=== PATIENT | female | born 2005 | race Caucasian/White ===

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

== ENCOUNTER 2023-09-10 08:09 | Emergency (ER) | payer OTHER, SELFPAY ==
[2023-09-10 08:10] VITALS: BP 114/62; PULSE 56; RESP 15; TEMP 36.4; O2SAT 100; BMI 19.3
--- NOTE | 2023-09-10 08:27 | EX.ED.DYSGE1 ---
HPI History of Present Illness Chief Complaint: Abn Labs Detail of Chief Complaint: Concern for carbon monoxide poisoning Narrative Narrative: Patient presents to the emergency department with concern for carbon monoxide poisoning. Apparently the patient's mother noticed that the house smelled of gas and called her father who investigated and thought there was a gas leak underneath the house. Patient complains of a headache and some nausea but she states is a chronic thing for her. She just wanted to get checked out. Patient has a history of POTS syndrome and vasovagal syncope. [facility] Medical History Lightheadedness Ovarian cyst Syncope Syncope and collapse Home Medications levonorgestrel 14 mcg/24 hrs (3 yrs) 13.5 mg intrauterine device (Naomy) 1 device intrauterine ONCE 01/27/20 [History Last Taken Unknown] Allergy/AdvReac Type Severity Reaction Status Date / Time No Known Allergies Allergy Verified 09/10/23 08:11 Family History Other Anxiety Depression Hypertension Social History Smoking Status: Never smoker alcohol intake: never substance use type: does not use caffeine: Yes what type of physical activity do you participate in: none seatbelt use: always additional social history: Patient is [employer] at [employer] ROS ROS ED Review of Systems ROS Unobtainable: other Constitutional Constitutional ED: Reports lethargy; Denies chills, fever(s), sweats or weight loss Eyes Eyes: Denies blurry vision, change in vision or diplopia ENT ENT ED: Denies rhinorrhea or sore throat Cardiovascular Cardiovascular: Denies chest pain, orthopnea or racing heartbeat Respiratory/Chest Respiratory/Chest: Reports dyspnea and dyspnea on exertion; Denies cough, orthopnea or sputum Gastrointestinal Gastrointestinal: Reports nausea; Denies abdominal pain, diarrhea or vomiting Genitourinary Genitourinary ED: Denies dysuria, hematuria or urinary frequency Musculoskeletal Musculoskeletal: Denies arthralgias, back pain, myalgias or neck pain Integumentary Denies abscess, Abrasions or rash Neurologic Neurologic: Reports headache(s); Denies weakness Psychiatric Psychiatric: Denies anxiety, depression or suicidal thoughts Endocrine Endocrinology: Denies polydipsia, polyphagia or polyuria Hematologic/Lymphatic Hematologic/Lymphatic: Denies easy bleeding, easy bruising or lymphadenopathy Allergic/Immunologic Allergic/Immunologic ED: Denies mouth swelling, tongue swelling or urticaria EXAM Physical Exam Const Vital Signs: 09/10/23 08:10 09/10/23 08:37 Temperature 97.6 F L Temperature Source Temporal Pulse Rate 56 L Respiratory Rate 15 Respiratory Effort Normal Respiratory Pattern Normal Blood Pressure 114/62 Blood Pressure Mean 79 Pulse Ox 100 Oxygen Delivery Method Room Air Positive well nourished and well developed General Appearance ED: well developed and NAD HEENT Reports TM's clear and moist mucous membranes normocephalic and atraumatic; Negative for trauma or tenderness Tympanic Membrane ED: Yes TM's clear Eyes PERRL and EOMs intact bilaterally General Eye ED: Negative for pale conjunctiva or scleral icterus Neck no lymphadenopathy, supple and no JVD General: Negative for tenderness Chest Wall inspection of chest normal and palpation of chest normal Chest: Negative for tenderness Resp normal respiratory effort and clear to auscultation bilaterally Effort and Inspection: Negative for respiratory distress or pain with movement Auscultation: Negative for rhonchi, wheezes or diminished lung sounds Cardio regular rate, regular rhythm, S1 normal heart sound, S2 normal heart sound and no murmurs Peripheral Pulses: pulses 2+ throughout GI normal to inspection, nondistended, normoactive bowel sounds, soft to palpation, non-tender, non-distended and no masses Back/Spine no CVA tenderness and no thoracic nor lumbar tenderness Extremity normal to inspection General Extremety ED: Negative for edema General Extremity: Negative for edema Neuro oriented x3, CN's II-XII intact bilaterally, no sensory deficits noted and gait normal Sensorium / Orientation: awake, alert, oriented to person, oriented to place and oriented to time Motor Exam: strength 5/5 throughout and strength abnormal Psych mental status grossly normal Skin no rashes or lesions noted and no wounds MDM MDM MDM Narrative Medical decision making narrative: Patient presents to the emergency department concern for carbon oxide poisoning due to a gas leak at home. She is mostly feeling at her baseline she is chronically has a headache and some nausea but does not any treatment for it. Patient had a carboxyhemoglobin level here that was normal at 1.8. Discussed results with patient. She will be discharged to home. She is advised to make sure she ventilates the home and make sure that she gets the gas leak addressed. ABG Data ABG results: ABG 09/10/23 09:08 VBG Carboxyhemoglobin 1.8 H Discharge Plan Triage Chief Complaint: Abn Labs ED Provider: Ivan Turk Dx/Rx/DC Orders Clinical Impression: Carbon monoxide in residence Instructions: ED Carbon Monoxide Poisoning Prescriptions: No Action Naomy 14 mcg/24 hrs (3 yrs) 13.5 mg intrauterine device 1 device intrauterine ONCE Rx Instructions: as a single dose Primary Care Provider: Munira Solano Referrals: Munira Solano MD [Primary Care Provider] - As Needed Disposition Disposition: Home, Self Care
[2023-09-10 09:11] LABS: Carboxyhemoglobin Frac (CO) 1.8 % (0.0-1.5)
--- OUTSIDE RECORDS SUMMARY | 2023-09-10 09:20 | XMS RPT_ITS | CCD ---
Author Name Unknown Address [address] [place] [address] Organization [facility] Care Team Providers Care Lamp Cleaner Name Role Phone DANIELLE ESPARZA Unavailable Unavailable REFERRED, SELF Unavailable Unavailable DANIELLE ESPARZA Unavailable Unavailable Unavailable Primary Care Provider Unavaildelfina e NO, PHYSICIAN Primary Care Unavailable JHOANA PASCUAL Attending Unavailable Ralph Rivera Unavailable Ralph Rivera Unavailable Zaire Solano MD Primary Care Provider [phone] ZAIRE SOLANO MD Primary Care Physician [phone] Emilee Funes DO Unavailable KOFI SANCHEZ, DR RODRÍGUEZ Attending UnavailZAIRE Rao MD Primary Care Unavailab ZAIRE Barragan MD Primary Care Unavailab JADIEL Perez MD Attending Unavailable Ralph Rivera MD Unavailable Zaire Solano MD Primary Care Provider [phone] Emilee Funes DO Unavailable EMILEE FUNES Attending UnavailEMILEE Reina Referring Unavailabl e OLEGHE, EFEWONGBE B Primary Care Unavailable EMILEE FUNES Attending UnavailEMILEE Reina Referring Unavailabl e OLEGHE, EFEWONGBE B Primary Care Unavailable EMILEE FUNES Attending UnavailRALPH Merchant Referring Unavailable AUNDREA, EFEWONGBE B Primary Care Unavailable EMILEE FUNES Attending UnavailEMILEE Reina Referring Unavailabl e OLEGHE, EFEWONGBE B Primary Care Unavailable EMILEE FUNES Referring Unavailabl e OLEGHE, EFEWONGBE B Primary Care Unavailable EMILEE FUNES Referring Unavailabl e OLEGHE, EFEWONGBE B Primary Care Unavailable EMILEE FUNES Referring Unavailabl e OLEGHE, EFEWONGBE B Primary Care Unavailable EMILEE FUNES Referring Unavailabl e OLEGHE, EFEWONGBE B Primary Care Unavailable EMILEE FUNES Referring Unavailabl e OLEGHE, EFEWONGBE B Primary Care Unavailable Medications Current Medications Medication Drug Class(es) Dates Sig (Normalized) Sig (Original) ondansetron 4 mg oral tablet (1 source) Serotonin-3 Receptor Antagonist Start: 01-27-2023 End: 01-30-2023 take 1 tablet by mouth every six hours as needed for nausea Zofran ODT use ondansetron oral tablet, disintegrating Dose : 4 mg =, Oral, q6h, PRN as needed for nausea/vomiting, # 12 tab(s), 0 Refill(s) Start Date: 01/27/23 Stop Date: 01/30/23 Status: Ordered perflutren lipid microspheres 1.3 mL in NaCl (PF) 0.9% 10 mL injection (DEFINITY) (10 sources) Start: 06-13-2022 End: 09-12-2023 perflutren lipid microspheres 1.3 mL in NaCl (PF) 0.9% 10 mL injection (DEFINITY) 125 ml sodium chloride 9 mg/ml prefilled syringe (10 sources) Start: 06-13-2022 End: 09-12-2023 sodium chloride 0.9 % (flush) 10 mL (BD POSIFLUSH) Completed/Discontinued Medications Medication Drug Class(es) Dates Sig (Normalized) Sig (Original) doxycycline monohydrate 100 mg oral capsule (5 sources) Tetracycline-cla ss Drug Start: 08-22-2022 End: 10-30-2022 take 1 capsule by mouth twice daily doxycycline monohydrate (MONODOX) 100 mg capsule TAKE 1 CAPSULE BY MOUTH TWICE DAILY FOR 14 DAYS 0 08/22/2022 10/30/2022 Discontinued (Course of therapy completed) Problems Active Problems Problem Classification Problem Date Documented Da te Episodic/Chronic Cardiac dysrhythmias (3 sources) Postural orthostatic tachycardia syndrome ; Translations: [POTS (postural orthostatic tachycardia syndrome)] Chronic Inflammatory diseases of female pelvic organs (1 source) Acute vaginitis; Translations: [Acute vaginitis] Onset: 08-07-2022 Episodic Other lower respiratory disease (2 sources) Dyspnea on exertion; Translations: [Other forms of dyspnea] Episodic Ovarian cyst (1 source) Cyst of ovary; Translations: [Unspecified ovarian cyst, unspecified side] Onset: 08-07-2022 Episodic Residual codes; unclassified (1 source) Left before being seen; Translations: [Procedure and treatment not carried out due to patient leaving prior to being seen by health care provider] Episodic Residual codes; unclassified (1 source) Procedure needed; Translations: [Other specified health status] Episodic Residual codes; unclassified (1 source) Difficulty managing exercise regime; Translations: [Other specified health status] Episodic Residual codes; unclassified (1 source) Activity intolerance; Translations: [Other general symptoms and signs] 05-31-2023 Episodic Residual codes; unclassified (1 source) Other general symptoms and signs; Translations: [Activity intolerance] Onset: 06-01-2023 Episodic Unclassified (1 source) POTS (postural orthostatic tachycardia syndrome); Translations: [POTS (postural orthostatic tachycardia syndrome)] Onset: 11-28-2022 Past or Other Problems Problem Classification Problem Date Documented Da te Episodic/Chronic Administrative/social admission (2 sources) Patient encounter status; Translations: [Exercise counseling] Onset: 10-30-2022 Episodic Allergic reactions (10 sources) Contact dermatitis; Translations: [Unspecified contact dermatitis, unspecified cause] Onset: 03-04-2008 06-13-2022 Episodic Cardiac dysrhythmias (18 sources) Palpitations; Translations: [Palpitations] Onset: 05-19-2022 Episodic Conditions associated with dizziness or vertigo (15 sources) Lightheadedness; Translations: [Dizziness and giddiness] Onset: 01-26-2022 06-13-2022 Episodic Malaise and fatigue (3 sources) Fatigue; Translations: [Other fatigue] Onset: 11-28-2022 Episodic Nonspecific chest pain (3 sources) Chest pain; Translations: [Chest pain, unspecified] Onset: 11-28-2022 Episodic Other lower respiratory disease (1 source) Other forms of dyspnea; Translations: [EDWARDS (dyspnea on exertion)] Onset: 11-28-2022 Episodic Residual codes; unclassified (2 sources) Other specified health status; Translations: [Need for home exercise program] Onset: 10-30-2022 Episodic Syncope (20 sources) Syncope and collapse; Translations: [Syncope and collapse] Onset: 12-21-2021 Episodic Results Test Name Value Interpretation Reference Range Facil ity Vital Signs Date Time Vital Sign Value Performing Clinician Facility 06-01-2023 07:43-0500 Body height 170.2 cm Emilee Funes DO Work Phone: [facility] 06-01-2023 07:43-0500 Body weight 58.06 kg Emilee Funes DO Work Phone: [facility] 01-27-2023 18:22-0400 Body temperature 98.78 [degF] JADIEL AYON MD [facility] 01-27-2023 18:22-0400 Diastolic Blood Pressure Non-Invasive 83 1 JADIEL AYON MD [facility] 01-27-2023 18:22-0400 Heart rate 86 /min JADIEL AYON MD [facility] 01-27-2023 18:22-0400 Respiratory rate 18 /min JADIEL AYON MD [facility] 01-27-2023 18:22-0400 Systolic Blood Pressure Non-Invasive 119 1 JADIEL AYON MD [facility] 10-30-2022 12:04-0400 Body height 167.6 cm [facility] Work Phone: [facility] 10-30-2022 12:04-0400 Body weight 57.61 kg [facility] Clinic Work Phone: [facility] 10-30-2022 12:04-0400 Diastolic blood pressure 70 mm[Hg] [facility] Work Phone: [facility] 10-30-2022 12:04-0400 Heart rate 72 /min [facility] Work Phone: [facility] 10-30-2022 12:04-0400 Systolic blood pressure 102 mm[Hg] [facility] Work Phone: [facility] 08-25-2022 15:08-0500 Body height 167.6 cm Emilee Courson DO Work Phone: [facility] 08-25-2022 15:08-0500 Body weight 55.79 kg Emilee Courson DO Work Phone: [facility] 08-25-2022 15:08-0500 Diastolic blood pressure 74 mm[Hg] Emilee Courson DO Work Phone: [facility] 08-25-2022 15:08-0500 Heart rate 86 /min Emilee Courson DO Work Phone: [facility] 08-25-2022 15:08-0500 Systolic blood pressure 111 mm[Hg] Emilee Courson DO Work Phone: [facility] 08-06-2022 22:57-0500 Body temperature 98.78 [degF] DR ANNE KIRBY MD [facility] 08-06-2022 22:57-0500 Diastolic Blood Pressure Non-Invasive [address] ANNE KIRBY MD [facility] 08-06-2022 22:57-0500 Heart rate 95 /min DR ANNE KRIBY MD [facility] 08-06-2022 22:57-0500 Respiratory rate 18 /min DR ANNE KIRBY MD [facility] 08-06-2022 22:57-0500 Systolic Blood Pressure Non-Invasive [address] ANNE KIRBY MD [facility] Encounters Encounter Date Encounter Type Care Provider Facility Start: 06-01-2023 End: 06-01-2023 ambulatory EMILEE FUNES Facility:[facility] Start: 06-01-2023 End: 06-01-2023 ambulatory Emilee Funes DO Work Phone: Cardiology Procedures Date Procedure Procedure Detail Performing Clinician Start: 10-30-2022 Cv strs tst xers&/or rx cont ecg trcg only Kylie Bartolo [employer] MARKET[employer] MANAGER Work Phone: Plan of Treatment Date Care Activity Detail Author Start: 10-10-2025 Urine microalbumin profile DTaP,Tdap,Td Vaccine (7 - Td or Tdap) [facility] Start: 03-23-2023 Covid-19 Vaccine () Covid-19 Vaccine () [facility] Start: 03-23-[address] [facility] Start: 07-23-2022 DEPRESSION ASSESSMENT DEPRESSION ASSESSMENT [facility] Start: 2022 Urine microalbumin profile DTAP,TDAP,TD (1 - Tdap) [facility] Start: 03-23-[address] [facility] Start: 03-01-2022 COVID-19 VACCINE (4 - Booster for Pfizer series) COVID-19 VACCINE (4 - Booster for Pfizer series) [facility] Start: 07-23-2021 DEPRESSION ASSESSMENT DEPRESSION ASSESSMENT [facility] Start: 04-30-2021 COVID-19 VACCINE (3 - Booster for Pfizer series) COVID-19 VACCINE (3 - Booster for Pfizer series) [facility] Start: 2021 CHLAMYDIA SCREENING (18-24) CHLAMYDIA SCREENING (18-24) [facility] Start: 2021 GC (GONORRHEA) SCREENING (18-24) GC (GONORRHEA) SCREENING (18-24) [facility] Start: 2021 HEPATITIS C SCREENING HEPATITIS C SCREENING [facility] Start: 2021 HIV SCREENING HIV SCREENING [facility] Start: 01-23-2021 COVID-19 VACCINE (3 - Booster for Pfizer series) COVID-19 VACCINE (3 - Booster for Pfizer series) [facility] Start: 2019 Meningococcal B Vaccine: Consider Based On Risk (1 of 2 - Patient Seeks Protection) Meningococcal B Vaccine: Consider Based On Risk (1 of 2 - Patient Seeks Protection) [facility] Start: 2019 MENINGOCOCCAL CONJUGATE (1 - 2-dose series) MENINGOCOCCAL CONJUGATE (1 - 2-dose series) [facility] Start: 2017 PEDS TO ADULT TRANSITION ANNUAL ASSESSMENT PEDS TO ADULT TRANSITION ANNUAL ASSESSMENT [facility] Start: 2015 Adult depression screening assessment DEPRESSION SCREENING [facility] Start: 2015 PEDS TO ADULT TRANSITION INITIAL DISCUSSION PEDS TO ADULT TRANSITION INITIAL DISCUSSION [facility] Start: 2014 HPV VACCINE (1 - 2-dose series) HPV VACCINE (1 - 2-dose series) [facility] Start: 2013 MENINGOCOCCAL B: Consider based on risk (1 of 2 - Risk Bexsero 2-dose series) MENINGOCOCCAL B: Consider based on risk (1 of 2 - Risk Bexsero 2-dose series) [facility] Start: 2012 HPV VACCINE (1 - 2-dose series) HPV VACCINE (1 - 2-dose series) [facility] Start: 2010 Urine microalbumin profile DTAP,TDAP,TD (1 - Tdap) [facility] Start: 2003 HEPATITIS B (1 of 3 - 3-dose series) HEPATITIS B (1 of 3 - 3-dose series) [facility] CARDIAC REHAB [place] OUT PT ([place], [place]) CARDIAC REHAB II OUTPT ([place]) BIC Routine POTS (postural orthostatic tachycardia syndrome) Ordered: 08/25/2022 [facility] Work Phone: Immunizations Immunization Date Immunization Notes Care Provider Mita lorenz 04-23-2017 influenza virus vacc ine, unspecified formulation Emilee Funes DO Work Phone: [facility] Payers Date Payer Category Payer Unknown [id number] 2018 Unknown MMO MMO [employer] [id number] 2018-Present [phone] [address] [place] [address] PPO [id number] 2018 Unknown [id number] 2003 Unknown [id number] 2003 Unknown [id number] 2003 Unknown [id number] Social History Date Type Detail Facility Tobacco smoking stat us [facility]IS Tobacco smoking consumption unknown [facility] Start: 10-26-2021 History SDOH Alcohol Frequency [address] [facility] Start: 10-26-2021 History SDOH Alcohol Std Drinks [address] [facility] Start: 10-26-2021 History SDOH Social Connections Phone [address] [facility] Start: 10-26-2021 History SDOH Social Connections Yazidi [address] [facility] Start: 10-26-2021 History SDOH Social Connections Meetings [address] [facility] Start: 10-26-2021 History SDOH Social Connections Living [address] [facility] Start: 2003 Sex Assigned At Female [facility] Start: 08-29-2021 End: 06-13-2022 Exposure to SARS-CoV-2 (event) Not sure [facility] Start: 06-13-2022 Tobacco smoking status KSIS Never smoked tobacco [facility] Start: 06-13-2022 Tobacco use and exposure Smokeless tobacco non-user [facility] Start: 06-13-2022 End: 06-01-2023 Alcohol intake Ex-drinker (finding) [facility] Tobacco smoking status No Smokin g Status Entered [facility] Start: 10-26-2021 End: 11-28-2022 History of Social function [facility] Start: 10-26-2021 End: 11-28-2022 Social connection and isolation panel [facility] Do you belong to any clubs or organizations such as advent groups, unions, fraternal or athletic groups, or school groups? Yes [facility] Are you now , , , , never or living with a partner? Never [facility] How often to you hav e a drink containing alcohol? Never [facility] How many standard dr inks containing alcohol do you have on a typical day? Patient refused [facility] Do you feel stress - tense, restless, nervous, or anxious, or unable to sleep at night because your mind is troubled all the time - these days [OSQ] Not at all [facility] (I/We) worried wheth er (my/our) food would run out before (I/we) got money to buy more. Never true [facility] In the past 12 month s, was there a time when you were not able to pay the mortgage or rent on time? No [facility] Start: 10-26-2021 Gender identity Identifies as female gender (finding) [facility] Functional Status Date Assessment Result Facility 01-27-2023 Functional Status Independent [facility] 08-07-2022 Functional Status Activity [place] tance Independent [facility] 08-06-2022 Functional Status Standard Safet y ID band on, Call device within reach, Bed in low position, Wheels locked, Upper/Half-Length side-rails up, Phone within reach, personal items within reach, Safety level maintained [facility] Mental Status Date Assessment Result Facility 01-27-2023 Mental Status Orientation Oriented x 4 [facility] 08-07-2022 Mental Status Orientation Oriented x 4 [facility] 08-06-2022 Mental Status [facility] Clinical Notes 06-09-2022 to 06-01-2023 Emilee Funes DO - 06/01/2023 8:45 AM ESTTelephone Encounter - Elaine Jones - 01/10/2023 11:26 AM EDTPatient Dima Mcfarland APRN.CNP - 10/30/2022 11:45 AM EDT Note Date & Type Note Facility 06-01-2023 Note HNO ID: [id number] Author: Emilee Funes DO Service: ? Author Type: Physician Type: Progress Notes Filed: 06/01/2023 8:14 AM Note Text: Heart, Vascular AND Thoracic [place] Department of Cardiovascular Medicine Telephone visit ESTABLISHED OUTPATIENT VISIT SERVICE DATE: 06/01/2023 Patient: Shagufta Murray SERVICE TIME: 7:24 AM : 2005 This is a virtual video visit. It required patient-provider interaction for the medical decision making as documented below. Shagufta Murray has consented to this video encounter. CHIEF COMPLAINT syncope HISTORY OF PRESENT ILLNESS Shagufta Murray is a 18 year old female with POTS and VVS confirmed by tilt. Has been counseled on lifestyle management and trialed on propranolol. She had been doing well with lessening frequency of her episodes at our prior visit and so were continuing her treatment plan and today is a follow up to reassess progress. She relates she has only had one episode of full lose of consciousness since our visit, occurred with exercise. She has been exercising regularly and consistent. She has been having GI symptoms and been a bit more bothersome with upset stomach, she started taking a probiotic and this has been helping. Stress test 10/30/22 Stress ECG Summary: The patient's resting heart rate was 63 bpm and blood pressure was 108/74 mmHg. The patient exercised according to the Rbuin 10% protocol. The estimated end-exercise MET level achieved using the FRIEND equation was 9.4, which is within the 25th to 50th percentile for age and sex. The estimated end-exercise MET level achieved using the previous ACSM equation was 11.8. The test was terminated due to general fatigue and the total exercise time was 12 minutes and 0 seconds. No symptoms provoked during stress. The maximum heart rate was 181 bpm, which is 90% of the predicted heart rate for age. This is an adequate heart rate response. Peak blood pressure was 172/80 mmHg. The double product achieved was 268[address]. Tilt 08/21/22 - Overall: The test is positive and diagnostic for reflex vasovagal syncope with predominant vasodepressor response. The test is diagnostic for accentuated postural tachycardia AVG supine HR 76 bpm dHR 70/10 48bpm She had an active stand test as well that was normal Type of Monitor: Extended Monitoring-Zio Patch Enrollment Dates: 06/13/2022-06/27/2022 Predominant rhythm is sinus. Average HR 95 bpm. Rare PAC and PVC Nursing Intake: She has been doing well on the propranolol. She has been doing the cardiac rehab plan since her last appointment. She denies chest pain, shortness of breath, orthopnea, PND, cough, edema or syncope. She drinks 2 32 oz bottles of water a day. She salts her food. She wears compression garments. PAST MEDICAL HISTORY Diagnosis Date Other infants, unspecified (weight)(765.10) 5 weeks early Palpitations Postural orthostatic tachycardia syndrome 08/21/2022 Syncope Unspecified and jaundice PAST SURGICAL HISTORY Procedure Laterality Date NONE FAMILY HISTORY Problem Relation Age of Onset other (negative family history [Other]) Other Social History Tobacco Use Smoking status: Never Smokeless tobacco: Never Vaping Use Vaping Use: Never used Substance Use Topics Alcohol use: Not Currently Drug use: Not Currently ALLERGIES No Known Allergies CURRENT MEDICATIONS propranolol (INDERAL) 10 mg tabletTake 1 tablet by mouth three times daily.Disp: 270 tabletRfl: 3 levonorgestrel (NAOMY) 14 mcg/24 hrs (3 yrs) 13.5 mg IUD IUDLevonorgestrel (Naomy) 14 mcg/24 hrs (3 yrs) 13.5 mg intrauterine device Active 1 DEVICE INTRA-UTER ONCE January 26, 2020 11:00pm as a single doseDisp: Rfl: ASSESSMENT: 1. POTS (postural orthostatic tachycardia syndrome) - ICD9: 427.89, ICD10: G90.A (primary diagnosis) 2. Vasovagal syncope - ICD9: 780.2, ICD10: R55 3. Palpitations - ICD9: 785.1, ICD10: R00.2 4. EDWARDS (dyspnea on exertion) - ICD9: 786.09, ICD10: R06.09 5. Chest pain, unspecified type - ICD9: 786.50, ICD10: R07.9 6. Fatigue, unspecified type - ICD9: 780.79, ICD10: R53.83 7. Lightheadedness - ICD9: 780.4, ICD10: R42 8. Activity intolerance - ICD9: 780.99, ICD10: R68.[address] [facility] Syncope Center Score Please estimate the frequency of the following symptoms: Never-0, Rare-1, Occasional-2, Frequent-3, Daily-4, Constant*-5 Symptoms Subtotal Syncope/Near Syncope Score 2 Dizziness/Lightheadedness Score 2 Exercise Intolerance Score 2 Headache Score 2 Sleep Problems Score 2 Total Frequency Score 9 *For syncope/near syncope multiple episodes daily Please estimate the severity of the following symptoms: None-0, Minimal-1, Mild-2, Moderate-3, Severe-4, Intolerable-5 Symptoms Subtotal Palpitations/Tachycardia Score 2 Fatigue Score 2 Brain Fog Score 2 Shortness of Breath Score 0 GI Symptoms S (more content not included)... [facility] 06-01-2023 History of Present illness Narrative Heart, Vascular & Thoracic [place] Department of Cardiovascular Medicine Telephone visit ESTABLISHED OUTPATIENT VISIT SERVICE DATE: 06/01/2023 Patient: Shagufta Murray SERVICE TIME: 7:24 AM : 2005 This is a virtual video visit. It required patient-provider interaction for the medical decision making as documented below. Shagufta Murray has consented to this video encounter. CHIEF COMPLAINT syncope HISTORY OF PRESENT ILLNESS Shagufta Murray is a 18 year old female with POTS and VVS confirmed by tilt. Has been counseled on lifestyle management and trialed on propranolol. She had been doing well with lessening frequency of her episodes at our prior visit and so were continuing her treatment plan and today is a follow up to reassess progress. She relates she has only had one episode of full lose of consciousness since our visit, occurred with exercise. She has been exercising regularly and consistent. She has been having GI symptoms and been a bit more bothersome with upset stomach, she started taking a probiotic and this has been helping. Stress test 10/30/22 Stress ECG Summary: The patient's resting heart rate was 63 bpm and blood pressure was 108/74 mmHg. The patient exercised according to the Willcox 10% protocol. The estimated end-exercise MET level achieved using the FRIEND equation was 9.4, which is within the 25th to 50th percentile for age and sex. The estimated end-exercise MET level achieved using the previous ACSM equation was 11.8. The test was terminated due to general fatigue and the total exercise time was 12 minutes and 0 seconds. No symptoms provoked during stress. The maximum heart rate was 181 bpm, which is 90% of the predicted heart rate for age. This is an adequate heart rate response. Peak blood pressure was 172/80 mmHg. The double product achieved was [id number]. Tilt 08/21/22 - Overall: The test is positive and diagnostic for reflex vasovagal syncope with predominant vasodepressor response. The test is diagnostic for accentuated postural tachycardia AVG supine HR 76 bpm dHR 70/10 48bpm She had an active stand test as well that was normal Type of Monitor: Extended Monitoring-Zio Patch Enrollment Dates: 06/13/2022-06/27/2022 Predominant rhythm is sinus. Average HR 95 bpm. Rare PAC and PVC Nursing Intake: She has been doing well on the propranolol. She has been doing the cardiac rehab plan since her last appointment. She denies chest pain, shortness of breath, orthopnea, PND, cough, edema or syncope. She drinks 2 32 oz bottles of water a day. She salts her food. She wears compression garments. PAST MEDICAL HISTORY Diagnosis Date Other infants, unspecified (weight)(765.10) 5 weeks early Palpitations Postural orthostatic tachycardia syndrome 08/21/2022 Syncope Unspecified and jaundice PAST SURGICAL HISTORY Procedure Laterality Date NONE FAMILY HISTORY Problem Relation Age of Onset other (negative family history [Other]) Other Social History Tobacco Use Smoking status: Never Smokeless tobacco: Never Vaping Use Vaping Use: Never used Substance Use Topics Alcohol use: Not Currently Drug use: Not Currently ALLERGIES No Known Allergies CURRENT MEDICATIONS propranolol (INDERAL) 10 mg tablet^Take 1 tablet by mouth three times daily.^Disp: 270 tablet^Rfl: 3 levonorgestrel (NAOMY) 14 mcg/24 hrs (3 yrs) 13.5 mg IUD IUD^Levonorgestrel (Naomy) 14 mcg/24 hrs (3 yrs) 13.5 mg intrauterine device Active 1 DEVICE INTRA-UTER ONCE January 26, 2020 11:00pm as a single dose^Disp: ^Rfl: ASSESSMENT: 1. POTS (postural orthostatic tachycardia syndrome) - ICD9: 427.89, ICD10: G90.A (primary diagnosis) 2. Vasovagal syncope - ICD9: 780.2, ICD10: R55 3. Palpitations - ICD9: 785.1, ICD10: R00.2 4. EDWARDS (dyspnea on exertion) - ICD9: 786.09, ICD10: R06.09 5. Chest pain, unspecified type - ICD9: 786.50, ICD10: R07.9 6. Fatigue, unspecified type - ICD9: 780.79, ICD10: R53.83 7. Lightheadedness - ICD9: 780.4, ICD10: R42 8. Activity intolerance - ICD9: 780.99, ICD10: R68.[address] [facility] Syncope [facility] Score Please estimate the frequency of the following symptoms: Never-0, Rare-1, Occasional-2, Frequent-3, Daily-4, Constant*-5 Symptoms Subtotal Syncope/Near Syncope Score 2 Dizziness/Lightheadedness Score 2 Exercise Intolerance Score 2 Headache Score 2 Sleep Problems Score 2 Total Frequency Score 9 *For syncope/near syncope multiple episodes daily Please estimate the severity of the following symptoms: None-0, Minimal-1, Mild-2, Moderate-3, Severe-4, Intolerable-5 Symptoms Subtotal Palpitations/Tachycardia Score 2 Fatigue Score 2 Brain Fog Score 2 Shortness of Breath Score 0 GI Symptoms Score* 1 Total Severity Score 7 *GI symptoms include nausea, bloating, diarrhea, constipation, poor appetite, abdominal pain, early satiety Total of Both Sections: 16 PLAN (Active Outpatient Problems): Overall, Shagufta reports she is doing well. I am really happy with the efforts and progress she has made. I encouraged her to continue her exercise program, we discussed the importance of consistency. We discussed interruptions will happen related to illness, injury or just life gets busy and we discussed how to approach these. I cautioned the ease of deconditioning she could experience, a two week layoff could cause rapid deconditioning, in those situations, I advised not to try to return to her activity level just before illness, but to start back when feeling well encough to do so but to start 50% intensity and 50% duration and then advance as tolerates. We discussed the commonness of GI dysmotility with POTS and the range from mild IBS-like to more severe symptoms. I discussed there is not a POTS specific treatment, treatment is largely symptom based. She is doing well, but we discussed if her GI symptoms would worsen, my advice would be to see a GI specialist and could start locally. I will plan on seeing her in a year but advised to message me if issues arise in the interim. I personally spent 13 minutes in total time involved in the management and care of this patient. Emilee Funes DO May 31, 2023 7:24 AM As a national referral center for Syncope and related conditions, seeing patients from across the country, we cannot provide work, FMLA, disability or other forms, or cardiac clearance. Please contact the patient's primary care physician or clinical extractor machine operator for the documentation requested. We will provide the office notes from the patient's most recent visit if they have not already been received, and other tests or evaluations performed here can be made available upon request. documented in this encounter [facility] 01-27-2023 Note ORIGINAL EXAMINATION: DOPPLER EVALUATION OF THE PELVIS 01/27/2023 7:38 pm COMPARISON: Pelvic ultrasound August 07, 2022 HISTORY: ORDERING SYSTEM PROVIDED HISTORY: Reason for Exam: left pain, rule out torsion FINDINGS: The uterus measures 6.1 cm x 3.9 cm. An intrauterine device is present and appropriately seated within the endometrial canal. Endometrial thickness was not measured. The right ovary measures 2 cm x 2.7 cm x 1.9 cm. Follicles are present which require no further follow-up. Blood flow is present. The left ovary measures 2.5 cm x 2.5 cm x 2.8 cm. Follicles are present, with a dominant follicle measuring up to 9 mm, which require no further follow-up. Blood flow is present. No free fluid. IMPRESSION: 1. No acute sonographic abnormality. 2. Intrauterine device is present and appropriately seated within the endometrial canal. Interpreted by: Shital Buck MD Preliminary Report By: Shital Buck MD Electronically signed By Shital Buck MD Dictated Date: 01/27/2023 7:41:20 PM Prelim Date: 01/27/2023 7:44:48 PM Sign Date: 01/27/2023 7:44:48 PM Ordering Provider: BECKI [facility] ([place]) 01-27-2023 Hospital Discharge instructions Patient Education 01/27/2023 18:26:07 Abdominal Pain Abdominal Pain Abdominal pain is pain in the stomach or belly area. Everyone has this pain from time to time. In many cases it goes away on its own. But abdominal pain can sometimes be due to a serious problem, such as appendicitis. So it s important to know when to get help. Causes of abdominal pain There are many possible causes of abdominal pain. Common causes in adults include: Constipation, diarrhea, or gas Stomach acid flowing back up into the esophagus (acid reflux or heartburn) Severe acid reflux, called GERD (gastroesophageal reflux disease) A sore in the lining of the stomach or small intestine (peptic ulcer) Inflammation of the gallbladder, liver, or pancreas Gallstones or kidney stones Appendicitis Intestinal blockage An internal organ pushing through a muscle or other tissue (hernia) Urinary tract infections In women, menstrual cramps, fibroids, ovarian cysts, pelvic inflammatory disease, or endometriosis Inflammation or infection of the intestines, including Crohn's disease and ulcerative colitis Irritable bowel syndrome Diagnosing the cause of abdominal pain Your healthcare provider will give you a physical exam help find the cause of your pain. If needed, you will have tests. Belly pain has many possible causes. So it can be hard to find the reason for your pain. Giving details about your pain can help. Tell your provider where and when you feel the pain, and what makes it better or worse. Also let your provider know if you have other symptoms such as: Fever Tiredness Upset stomach (nausea) Vomiting Changes in bathroom habits Blood in the stool or black, tarry stool Weight loss that you can't explain (involuntary weight loss?) Also report any family history of stomach or intestinal problems, or cancers. Tell your provider about all your alcohol use and drug use. Tell your provider about all medicines you use, including herbs, vitamins, and supplements. Treating abdominal pain Some causes of pain need emergency medical treatment right away. These include appendicitis or a bowel blockage. Other problems can be treated with rest, fluids, or medicines. Your healthcare provider can give you specific instructions for treatment or self-care based on what is causing your pain. If you have vomiting or diarrhea, sip water or other clear fluids. When you are ready to eat solid foods again, start with small amounts of eyjn-yl-uhyout, low-fat foods. These include apple sauce, toast, or crackers. When to get medical care Call 911 or go to the hospital right away if you: Can t pass stool and are vomiting Are vomiting blood or have bloody diarrhea or black, tarry diarrhea Have chest, neck, or shoulder pain Feel like you might pass out Have pain in your shoulder blades with nausea Have sudden, severe belly pain Have new, severe pain unlike any you have felt before Have a belly that is rigid, hard, and hurts to touch Call your healthcare provider if you have: Pain for more than 5 days Bloating for more than 2 days Diarrhea for more than 5 days A fever of 100.4 F (38 C) or higher, or as directed by your healthcare provider Pain that gets worse Weight loss for no reason Continued lack of appetite Blood in your stool How to prevent abdominal pain Here are some tips to help prevent abdominal pain: Eat smaller amounts of food at each meal. Don't eat greasy, fried, or other high-fat foods. Don't eat foods that give you gas. Exercise regularly. Drink plenty of fluids. To help prevent GERD symptoms: Quit smoking. Reduce alcohol and foods that increase stomach acid. Don't use aspirin or lqzg-pgu-asulxnk pain and fever medicines, if possible. This includes nonsteroidal anti-inflammatory drugs (NSAIDs). Lose excess weight. Finish eating at least 2 hours before you go to bed or lie down. Raise the head of your bed. [id number] [employer]. [address] [place] [address]. All rights reserved. This information is not intended as a substitute for professional medical care. Always follow your healthcare professional's instructions. Follow Up Care 01/27/2023 18:17:17 With:Go to emergency room if symptoms worsen Address:Unknown When:2-4 days With:ZAIRE SOLANO MD Address: [address] [place] [address] [phone] When:2-4 days [facility] 01-27-2023 Emergency department Discharge summary Discharge Instructions Thank you for allowing [facility] to assist you with your healthcare needs. The following is important discharge information regarding your hospital visit. Diagnosis from Today's Visit Abdominal pain What to Do Next Instructions from Your Care Team No qualifying data available. Post Acute Orders No qualifying data available. You Need to Schedule the Following Appointments Follow Up with Go to emergency room if symptoms worsen When Within 2-4 days Follow Up with ZAIRE SOLANO MD When Within 2-4 days Where: [place] [id number] [phone] Allergies NKA Medications Please ask your primary doctor or pharmacist before taking any other medication not listed, including over the counter drugs, herbal medications, vitamins and or supplements as they may interact with your home medications. What How Much When Instructions Last Dose New ondansetron (Zofran ODT use ondansetron oral tablet, disintegrating ) 4 Milligram by mouth Every 6 hours as needed for as needed for nausea/vomiting Duration: 3 Days Printed Prescription Please take this list to your next doctor s visit. Bring all medications you take, including over the counter medications, herbals and other supplements with you to your doctor s visit. Patients and families are reminded to discard old lists and to update any records with all medication providers or retail pharmacies. Education Materials Abdominal Pain Abdominal pain is pain in the stomach or belly area. Everyone has this pain from time to time. In many cases it goes away on its own. But abdominal pain can sometimes be due to a serious problem, such as appendicitis. So it s important to know when to get help. Causes of abdominal pain There are many possible causes of abdominal pain. Common causes in adults include: Constipation, diarrhea, or gas Stomach acid flowing back up into the esophagus (acid reflux or heartburn) Severe acid reflux, called GERD (gastroesophageal reflux disease) A sore in the lining of the stomach or small intestine (peptic ulcer) Inflammation of the gallbladder, liver, or pancreas Gallstones or kidney stones Appendicitis Intestinal blockage An internal organ pushing through a muscle or other tissue (hernia) Urinary tract infections In women, menstrual cramps, fibroids, ovarian cysts, pelvic inflammatory disease, or endometriosis Inflammation or infection of the intestines, including Crohn's disease and ulcerative colitis Irritable bowel syndrome Diagnosing the cause of abdominal pain Your healthcare provider will give you a physical exam help find the cause of your pain. If needed, you will have tests. Belly pain has many possible causes. So it can be hard to find the reason for your pain. Giving details about your pain can help. Tell your provider where and when you feel the pain, and what makes it better or worse. Also let your provider know if you have other symptoms such as: Fever Tiredness Upset stomach (nausea) Vomiting Changes in bathroom habits Blood in the stool or black, tarry stool Weight loss that you can't explain (involuntary weight loss?) Also report any family history of stomach or intestinal problems, or cancers. Tell your provider about all your alcohol use and drug use. Tell your provider about all medicines you use, including herbs, vitamins, and supplements. Treating abdominal pain Some causes of pain need emergency medical treatment right away. These include appendicitis or a bowel blockage. Other problems can be treated with rest, fluids, or medicines. Your healthcare provider can give you specific instructions for treatment or self-care based on what is causing your pain. If you have vomiting or diarrhea, sip water or other clear fluids. When you are ready to eat solid foods again, start with small amounts of fynv-iw-oynxec, low-fat foods. These include apple sauce, toast, or crackers. When to get medical care Call 911 or go to the hospital right away if you: Can t pass stool and are vomiting Are vomiting blood or have bloody diarrhea or black, tarry diarrhea Have chest, neck, or shoulder pain Feel like you might pass out Have pain in your shoulder blades with nausea Have sudden, severe belly pain Have new, severe pain unlike any you have felt before Have a belly that is rigid, hard, and hurts to touch Call your healthcare provider if you have: Pain for more than 5 days Bloating for more than 2 days Diarrhea for more than 5 days A fever of 100.4 F (38 C) or higher, or as directed by your healthcare provider Pain that gets worse Weight loss for no reason Continued lack of appetite Blood in your stool How to prevent abdominal pain Here are some tips to help prevent abdominal pain: Eat smaller amounts of food at each meal. Don't eat greasy, fried, or other high-fat foods. Don't eat foods that give you gas. Exercise regularly. Drink plenty of fluids. To help prevent GERD symptoms: Quit smoking. Reduce alcohol and foods that increase stomach acid. Don't use aspirin or piiu-kou-axhzura pain and fever medicines, if possible. This includes nonsteroidal anti-inflammatory drugs (NSAIDs). Lose excess weight. Finish eating at least 2 hours before you go to bed or lie down. Raise the head of your bed. [id number] [employer]. [address] [place] [address], [place] [address]. All rights reserved. This information is not intended as a substitute for professional medical care. Always follow your healthcare professional's instructions. Additional Information VACCINATE! IT SAVES LIVES! Members of the community who have not yet received the COVID-19 vaccine and would like to receive it can visit one of [facility] vaccine clinics. There are many vaccine clinic locations within the [facility]. For locations and available times, please visit [email or web address].[email or web address] [email or web address] It is important to note that some COVID mobile vaccine clinics are held outdoors and may be canceled in rainy or stormy conditions. To learn more about pediatric vaccinations (ages 5-11), we invite you to visit the [facility] webpage. https://www.[email or web address].org/p ages/1372-Jhmmz-Yinkuonqcvv-Freq xgnozv-Dajqr-Joosrzuhq.html To learn more about the COVID-19 vaccine, we invite you to visit the CDC website for a list of frequently asked questions. https://www.cdc.gov/coronavirus/ 2019-ncov/vaccines/faq.html [facility] Patient Portal Access Instructions: Stay connected with your healthcare team and access your personal medical information anytime with the [employer] Patient Portal. If you would like a full copy of your medical records please contact the [facility] Medical Records Department Sunday through Sunday between 8a.m. and 4:30p.m. Please follow the directions below to access the portal: 1.Access the email account you provided upon registration to the hospital.2.Look for an invitation email from [facility].3.Open the email and access the invitation link: Accept Invitation to [employer]4.Fill in the required joshi to create your account. Sign into www.[employer] with your username and password that you created in the above steps to stay up to date. You can then view a summary of results, a summary of your visits, and the ability to download your summaries to your computer or send the information securely to a physician. Remember that your healthcare information is confidential, so carefully consider who you will allow to register on the [employer] Patient Portal for access to your information. You can also access the [employer] [facility] Patient Portal on the kwiry saima. Simply click on Health Records under Health Data and then click on the Tumblr logo. HOW TO SAFELY DISPOSE OF PRESCRIPTION MEDICATIONS Please use one of the following methods to safely dispose of your unused medications. 1.Use a drug disposal kit: the drug disposal pouch allows you to safely discard your old and unused drugs. Ask your nurse to give you one when you are discharged.2.Visit a local take-back location: Many local pharmacies and police departments have programs that collect old and unwanted prescription drugs. Call your local pharmacy or go to http://[employer]0Q0Ep6k to find one close to you.3.Make use of household items: Use cat litter or old coffee grounds to dispose medications if other options are not available. Mix your drugs with these household products, seal them in an airtight container and throw it into the garbage. Call [facility]: [phone] to be sure your drugs can be disposed of in this way. Some medicines may require a different approach.4.Never flush your medications down the toilet. IF YOU HAVE BEEN PRESCRIBED AN OPIOIDS FOR PAIN If you have been prescribed an opioid (such as hydrocodone, oxycodone or morphine), it is critical to understand the possible side effects and risks of opioid pain medications. Even when taken as directed, opioids can have several side effects including: Tolerance, meaning you might need to take more of a medication for the same pain relief. Nausea, vomiting and/or constipation. Sleepiness, dizziness, dry mouth, confusion, depression or itching. Physical dependence, meaning you have withdrawal symptoms when a medication is stopped ? this can develop within a few days. KNOW YOUR RESPONSIBILITIES It is important to know exactly how much and how often to take the opioid pain medications you are prescribed. Never take opioids in higher amounts or more often than prescribed. Do not combine opioids with alcohol or other drugs that cause drowsiness, such as benzodiazepines, also known as benzos, including diazepam and alprazolam, muscle relaxants or sleep aids. Never sell or share prescription opioids. This is illegal. Store opioids in a secure place and out of reach of others (including children, family, friends and visitors). The last page(s) of this document has been signed and retained as a CHART COPY Signatures Patient Education Materials Abdominal Pain Medication Leaflets My discharge plan and instructions have been reviewed and explained to me and I,SHAGUFTA MURRAY understand my current condition and have read and understand these discharge instructions. I have received a written copy of the plan/instructions. If I have questions, I am aware that I should contact my doctor. Patient/Manager Center Signature: Date/Time: Relationship to Patient: Witness Name/Signature: Date/Time: [facility] 01-27-2023 Note ORIGINAL EXAMINATION: DOPPLER EVALUATION OF THE PELVIS 01/27/2023 7:38 pm COMPARISON: Pelvic ultrasound August 07, 2022 HISTORY: ORDERING SYSTEM PROVIDED HISTORY: Reason for Exam: left pain, rule out torsion FINDINGS: The uterus measures 6.1 cm x 3.9 cm. An intrauterine device is present and appropriately seated within the endometrial canal. Endometrial thickness was not measured. The right ovary measures 2 cm x 2.7 cm x 1.9 cm. Follicles are present which require no further follow-up. Blood flow is present. The left ovary measures 2.5 cm x 2.5 cm x 2.8 cm. Follicles are present, with a dominant follicle measuring up to 9 mm, which require no further follow-up. Blood flow is present. No free fluid. IMPRESSION: 1. No acute sonographic abnormality. 2. Intrauterine device is present and appropriately seated within the endometrial canal. Interpreted by: Shital Buck MD Preliminary Report By: Shital Buck MD Electronically signed By Shital Buck MD Dictated Date: 01/27/2023 7:41:20 PM Prelim Date: 01/27/2023 7:44:48 PM Sign Date: 01/27/2023 7:44:48 PM Ordering Provider: BECKI HOWARD [facility] 01-27-2023 Note ORIGINAL EXAMINATION: DOPPLER EVALUATION OF THE PELVIS 01/27/2023 7:38 pm COMPARISON: Pelvic ultrasound August 07, 2022 HISTORY: ORDERING SYSTEM PROVIDED HISTORY: Reason for Exam: left pain, rule out torsion FINDINGS: The uterus measures 6.1 cm x 3.9 cm. An intrauterine device is present and appropriately seated within the endometrial canal. Endometrial thickness was not measured. The right ovary measures 2 cm x 2.7 cm x 1.9 cm. Follicles are present which require no further follow-up. Blood flow is present. The left ovary measures 2.5 cm x 2.5 cm x 2.8 cm. Follicles are present, with a dominant follicle measuring up to 9 mm, which require no further follow-up. Blood flow is present. No free fluid. IMPRESSION: 1. No acute sonographic abnormality. 2. Intrauterine device is present and appropriately seated within the endometrial canal. Interpreted by: Shital Buck MD Preliminary Report By: Shital Buck MD Electronically signed By Shital Buck MD Dictated Date: 01/27/2023 7:41:20 PM Prelim Date: 01/27/2023 7:44:48 PM Sign Date: 01/27/2023 7:44:48 PM Ordering Provider: BECKI [facility] 01-10-2023 Miscellaneous Notes Electronic request for refill. Requested Prescriptions Pending Prescriptions Disp Refills propranolol (INDERAL) 10 mg tablet 270 tablet 3 Sig: Take 1 tablet by mouth three times daily. Last office visit in was 08/25/2022 Elaine Jones documented in this encounter [facility] 11-28-2022 Note HNO ID: [id number] Author: Emilee Funes, DO Service: ? Author Type: Physician Type: Progress Notes Filed: 11/28/2022 9:21 AM Note Text: Heart, Vascular AND Thoracic [place] Department of Cardiovascular Medicine VIRTUAL VIDEO VISIT ESTABLISHED OUTPATIENT VISIT SERVICE DATE: 11/28/2022 Patient: Shagufta Murray SERVICE TIME: 11:41 AM : 2005 This is a virtual video visit. It required patient-provider interaction for the medical decision making as documented below. Shagufta Murray has consented to this video encounter. CHIEF COMPLAINT syncope HISTORY OF PRESENT ILLNESS Shagufta Murray is a 17 year old female with a prior diagnosis of vasovagal syncope confirmed on her local tilt with NTG, but with very frequent symptoms episodes that we atypical for VVS, she had a repeat tilt consistent with POTS and VVS. She also related episodes of TLOC 10-20 times a week which would not be consistent with POTS or VVS and we recommended a trial of propranolol but if does not help her symptoms would recommend a referral to epilepsy for an EMU evaluation as that burden of episodes is most suggestive of PNES. She was counselled on lifestyle management and referred to cardiac rehab. Overall doing, well, exercised regularly. She gets very lightheaded after exercising. Tilt 08/21/22 - Overall: The test is positive and diagnostic for reflex vasovagal syncope with predominant vasodepressor response. The test is diagnostic for accentuated postural tachycardia AVG supine HR 76 bpm dHR 70/10 48bpm She had an active stand test as well that was normal Type of Monitor: Extended Monitoring-Zio Patch Enrollment Dates: 06/13/2022-06/27/2022 Predominant rhythm is sinus. Average HR 95 bpm. Rare PAC and PVC Nursing Intake: She has been doing well on propranolol. She had her cardiac rehab consult and does exercises at home every other day. She has had 2-3 syncopal episodes. She continues to struggle with fatigue. She his lightheaded on occasion with position change. She denies chest pain, shortness of breath, orthopnea, PND, cough, edema or palpitations. She drinks 4-5 bottles of water a day. She salts her food. She wears knee high compression garments and leggings for work. PAST MEDICAL HISTORY Diagnosis Date Other infants, unspecified (weight)(765.10) 5 weeks early Palpitations Postural orthostatic tachycardia syndrome 08/21/2022 Syncope Unspecified and jaundice PAST SURGICAL HISTORY Procedure Laterality Date NONE FAMILY HISTORY Problem Relation Age of Onset other (negative family history [Other]) Other Social History Tobacco Use Smoking status: Never Smokeless tobacco: Never Vaping Use Vaping Use: Never used Substance Use Topics Alcohol use: Not Currently Drug use: Not Currently ALLERGIES No Known Allergies CURRENT MEDICATIONS propranolol (INDERAL) 10 mg tabletTake 1 tablet by mouth three times daily.Disp: 90 tabletRfl: 3 levonorgestrel (NAOMY) 14 mcg/24 hrs (3 yrs) 13.5 mg IUD IUDLevonorgestrel (Naomy) 14 mcg/24 hrs (3 yrs) 13.5 mg intrauterine device Active 1 DEVICE INTRA-UTER ONCE January 26, 2020 11:00pm as a single doseDisp: Rfl: ASSESSMENT: 1. POTS (postural orthostatic tachycardia syndrome) - ICD9: 427.89, ICD10: G90.A (primary diagnosis) 2. Vasovagal syncope - ICD9: 780.2, ICD10: R55 3. Palpitations - ICD9: 785.1, ICD10: R00.2 4. EDWARDS (dyspnea on exertion) - ICD9: 786.09, ICD10: R06.09 5. Chest pain, unspecified type - ICD9: 786.50, ICD10: R07.9 6. Fatigue, unspecified type - ICD9: 780.79, ICD10: R53.83 7. Lightheadedness - ICD9: 780.4, ICD10: R42 8. Postural lightheadedness - ICD9: 780.4, ICD10: R42 PLAN (Active Outpatient Problems): Overall, Shagufta is doing well. We discussed and she feels she is doing well on current dose of propranolol. We discussed some tips to lessen lightheadedness after exercise, use of cool down, consider recumbant exercise after upright, increased water intake during cool down, wear compression leggings while exercising. She is going to continue her current management plan, I asked that she message me in January, her syncope episodes have decreased but still occurring, if not continued improvement over the 3 months since she started the cardiac rehab program we may add midodrine to see if helps. I personally spent 18 minutes in total time involved in the management and care of this patient. Emilee Funes DO November 27, 2022 11:41 AM As a national referral center for Syncope and related conditions, seeing patients from across the country, we cannot provide work, FMLA, disability or other forms, or cardiac clearance. Please contact the patient's primary care physician or clinical extractor machine operator for the documentation requested. We will provide the office notes from the patient's most recent visit if they have not already been received, an (more content not included)... [facility] 10-30-2022 Instructions Steve Guzman, Software Systems Architect - 10/30/2022 3:27 PM EDT Images from the original note were not included. AEROBIC EXERCISE PLAN FOR SYMPTOM MANAGEMENT: Initiate the self-supervised exercise prescription for Postural Orthostatic Tachycardia Syndrome (POTS) symptom management as outlined below: *Participation in structured exercise as recommended below constitutes a SINGLE aspect of your POTS symptom management plan and should not be viewed as the only factor responsible for managing the severity of your symptoms. *Structured, consistent, and specific exercise is therapeutic and can provide you with a dose-benefit response. This means the more consistent you can be with performing intentional exercise at a safe and appropriate intensity, the more likely you are to see the benefits of exercise training for managing your symptoms. *DO NOT engage in maximal intensity exercise and/or other forms of high intensity physical exertion for your symptom management plan. NO high intensity interval training. *Participating in high/severe intensity physical exertion regardless of whether it occurs in a gym or elsewhere will commonly result in feeling the need to rest/recover for up to 3-4 days before feeling energy and physical endurance levels return to a higher baseline. *Consistently drink water throughout the day in small sips/quantities. Not drinking enough water throughout the day will increase the likelihood your heart rate will rise to levels higher than typical while at rest as well as when changing body positions from sitting to standing. *Do not gulp or chug water. Aerobic Exercise Training: -Choose a time of day (whatever your preference) where you will be able to consistently exercise on a regular basis. Controlling this factor (along with the others) will help you better understand how your body responds to exercise and other types of physical exertion. Subjective exercise intensity scale Rating of perceived exertion (RPE) scale (6-20): *When guiding exercise training intensities, inclusively consider *HR zones (primary guide)*, workload zones, symptoms, and RPE zones. *If you need to make adjustments to the recommended exercise machine settings (noted below) in order to achieve your target HR zone this is perfectly ok. *Commercial brands include for example (other brands are available outside the ones listed below): *Smart Watch ([employer], [employer], [employer]ocr[employer], etc); *POLAR chest strap (model: H10 with any POLAR wrist watch, such as the POLAR UNITE); *Garmin chest strap (model: HRM-Pro Plus with any Garmin watch, such as the VIVOSMART 5); *Adinch Inco 5 or 7 sport watch *Commercial heart rate monitors are not medical devices and the information acquired from these devices should not be used to make medical diagnostic decisions. *Do NOT monitor your HR while performing activities of daily living or other types of quick physical movements throughout your day. *If any exercise occurs outdoors, it will be more difficult to maintain consistent control of your HR response to exercise due to numerous environmental and terrain factors. *You can also expect to expend more energy when performing your exercise outdoors due the influences of numerous environmental and terrain factors. Therefore, take a more conservative approach when performing your exercise training outdoors. *Consider the timing of when you take your b-crissy therapy (PROPRANOLOL) relative to when you exercise, particularly as it relates to basing exercise intensity on HR training zones. *This medication can impact how high your HR rises during exercise. As best as possible, keep the time difference between when you take your b-crissy and when you exercise as consistent as possible. *For example, if you exercise 8 hours after taking your b-crissy you could expect to see your heart rate rise to higher levels compared with if you exercised within the 1 to 3 hour window after taking the medication. Keep this in mind so you have a better understanding of why your heart rate during exercise might differ day-to-day. *Slowly drink 8-12 ounces of water or sports drink within the 30 minutes before exercise (for example, low calorie sugar-free options are Powerade zero, G2, propel fitness water, Vitamin Water, Nuun electrolyte tablets, Liquid IV, etc.). *If you begin exercise without having taken in enough fluid throughout the day, it will be easier for your body temperature to rise quickly and lead to the feeling of being overheated. *Continue to drink fluid throughout exercise and the recovery period as needed. *DO NOT drink caffeine prior to exercise. *Warm-up exercise period immediately prior to performing sessions*: DO NOT SKIP THE WARM UP EVER. The warm up should be performed on the exact piece of equipment you plan on performing your exercise training that day. Do not perform multiple warm up periods on different pieces of equipment. *Skipping the warm up will increase the likelihood you will experience an increase in symptoms during exercise. -Duration: at least 6-8 min (take longer time to warm-up as needed). -Modality: *Semi recumbent cycle, resistance: none *Pedal rate: 30-35 rpm or lower *Stationary upright cycle, resistance: none *Pedal rate: 30-35 rpm or lower -Take as much time as you need after to allow your body to get settled after changing body positions from standing to sitting. -Intensity: heart rate (HR) = 85-90 bpm and Rating of perceived exertion (RPE)= 6-8 (use the above 6-20 scale) -(eventually in your exercise progression) Treadmill: 0.0 % grade at a modest/low level walking pace. -Intensity: heart rate (HR) = 95-100 bpm and Rating of perceived exertion (RPE)= 6-8 (use the above 6-20 scale) *Aerobic Exercise Sessions by Week and Modality*: -Only progress to the next training block of your program if you are able to consistently perform your exercise without experiencing any worsening of your symptoms. -If for any reason you have to miss multiple training days in succession (for example, more than 3) in a given week(s), upon resuming your exercise training it would be reasonable to briefly dial back the HR zone intensity and session duration in order to more appropriately re-introduce physical stress to your body. *For example, for 1 week, decrease the HR zone you had been previously working at prior to the time away by at least 5 bpm from both the lower and upper end of the zone. Also decrease the duration of your training sessions by at least 5 min or more. TRAINING BLOCK #1: Week 1-8 or longer (this is the minimum number of weeks. If necessary, make this training block as long as you need): Mode: Semi recumbent cycle (NO high intensity interval training): -HR = as tolerated, up to 105-110 bpm (primary guide) -Pedal rate = 55-60 rpm. -Andrews = 35-45 . (Make minor adjustments to wheel resistance settings in order to achieve target HR zone, as needed) -Rating of perceived exertion (RPE) = 10-12 (refer to above 6-20 scale) Frequency per week: -At least 4 days (up to 5 days, as tolerated) Weeks 1-4: Total minutes per day (not including warm-up and cool-down time): -as tolerated, up to 20 min (do not exceed time even if you feel the urge to do so) *As tolerated, your exercise can be performed as consecutive minutes. If needed, it is ok if you stop exercise early and begin the active cool-down period. Weeks 5-8: Total minutes per day (not including warm-up and cool-down time): -as tolerated, up to 25 min (do not exceed time even if you feel the urge to do so) *As tolerated, your exercise can be performed as consecutive minutes. If needed, it is ok if you stop exercise early and begin the active cool-down period. -Only progress to the next training block of your program if you are able to consistently perform your exercise without experiencing any worsening of your symptoms. -If for any reason you have to miss multiple training days in succession (for example, more than 3) in a given week(s), upon resuming your exercise training it would be reasonable to briefly dial back the HR zone intensity and session duration in order to more appropriately re-introduce physical stress to your body. *For example, for 1 week, decrease the HR zone you had been previously working at prior to the time away by at least 5 bpm from both the lower and upper end of the zone. Also decrease the duration of your training sessions by at least 5 min or more. TRAINING BLOCK #2: Week 9-16 or longer (this is the minimum number of weeks. If necessary, make this training block as long as you need): Mode: Stationary upright cycle (NO high intensity interval training): -HR = as tolerated, up to 110-115 bpm (primary guide) -Pedal rate = 55-60 rpm. -Andrews = 35-45 . (Make minor adjustments to wheel resistance settings in order to achieve target HR zone, as needed) -Rating of perceived exertion (RPE) = 11-13 (refer to above 6-20 scale) Frequency per week: -At least 4 days (up to 5 days, as tolerated) Weeks 9-12: Total minutes per day (not including warm-up and cool-down time): -as tolerated, up to 25 min (do not exceed time even if you feel the urge to do so) *As tolerated, your exercise can be performed as consecutive minutes. If needed, it is ok if you stop exercise early and begin the active cool-down period. Weeks 13-16: Total minutes per day (not including warm-up and cool-down time): -as tolerated, up to 30 min (do not exceed time even if you feel the urge to do so) *As tolerated, your exercise can be performed as consecutive minutes. If needed, it is ok if you stop exercise early and begin the active cool-down period. -Only progress to the next training block of your program if you are able to consistently perform your exercise without experiencing any worsening of your symptoms. -If for any reason you have to miss multiple training days in succession (for example, more than 3) in a given week(s), upon resuming your exercise training it would be reasonable to briefly dial back the HR zone intensity and session duration in order to more appropriately re-introduce physical stress to your body. *For example, for 1 week, decrease the HR zone you had been previously working at prior to the time away by at least 5 bpm from both the lower and upper end of the zone. Also decrease the duration of your training sessions by at least 5 min or more. TRAINING BLOCK #3: Week 17-24 or longer (this is the minimum number of weeks. If necessary, make this training block as long as you need): Mode: Stationary upright cycle (NO high intensity interval training): -HR = as tolerated, up to 115-120 bpm (primary guide) -Pedal rate = 55-60 rpm. -Andrews = 40-50 (Make minor adjustments to wheel resistance settings in order to achieve target HR zone, as needed) -Rating of perceived exertion (RPE) = 12-14 (refer to above 6-20 scale) Frequency per week: -At least 4 days (up to 6 days, as tolerated) Weeks 17-20: Total minutes per day (not including warm-up and cool-down time): -as tolerated, up to 30 min (do not exceed time even if you feel the urge to do so) *As tolerated, your exercise can be performed as consecutive minutes. If needed, it is ok if you stop exercise early and begin the active cool-down period. Weeks 21-24: Total minutes per day (not including warm-up and cool-down time): -as tolerated, up to 35 min (do not exceed time even if you feel the urge to do so) *As tolerated, your exercise can be performed as consecutive minutes. If needed, it is ok if you stop exercise early and begin the active cool-down period. -Only progress to the next training block of your program if you are able to consistently perform your exercise without experiencing any worsening of your symptoms. -If for any reason you have to miss multiple training days in succession (for example, more than 3) in a given week(s), upon resuming your exercise training it would be reasonable to briefly dial back the HR zone intensity and session duration in order to more appropriately re-introduce physical stress to your body. *For example, for 1 week, decrease the HR zone you had been previously working at prior to the time away by at least 5 bpm from both the lower and upper end of the zone. Also decrease the duration of your training sessions by at least 5 min or more. TRAINING BLOCK #4: Week 25-32 or longer (this is the minimum number of weeks. If necessary, make this training block as long as you need): Mode: Stationary upright cycle (NO high intensity interval training): -HR = as tolerated, up to 120-125 bpm (primary guide) -Pedal rate = 55-60 rpm. -Andrews = 45-55 (Make minor adjustments to wheel resistance settings in order to achieve target HR zone, as needed) -Rating of perceived exertion (RPE) = 12-14 (refer to above 6-20 scale) Or, as tolerated, you may want to integrate the treadmill as an option, Mode: Treadmill (no jogging; no sprinting; NO high intensity interval training): -HR = as tolerated, up to 120-125 bpm (primary guide) -Speed = 3.0 mph, Grade = 0.0 to 2.5 % grade up to (as tolerated) Speed = 3.3 mph, Grade = 0.0 to 2.0 % grade. (Make minor adjustments to achieve target HR zone, as needed) -Rating of perceived exertion (RPE) = 12-14 (refer to above 6-20 scale) Frequency per week: -At least 4 days (up to 6 days, as tolerated) Weeks 25-28: Total minutes per day (not including warm-up and cool-down time): -as tolerated, up to 35 min (do not exceed time even if you feel the urge to do so) *As tolerated, your exercise can be performed as consecutive minutes. If needed, it is ok if you stop exercise early and begin the active cool-down period. Weeks -32: Total minutes per day (not including warm-up and cool-down time): -as tolerated, up to 40 min (do not exceed time even if you feel the urge to do so) *As tolerated, your exercise can be performed as consecutive minutes. If needed, it is ok if you stop exercise early and begin the active cool-down period. -Only progress to the next training block of your program if you are able to consistently perform your exercise without experiencing any worsening of your symptoms. -If for any reason you have to miss multiple training days in succession (for example, more than 3) in a given week(s), upon resuming your exercise training it would be reasonable to briefly dial back the HR zone intensity and session duration in order to more appropriately re-introduce physical stress to your body. *For example, for 1 week, decrease the HR zone you had been previously working at prior to the time away by at least 5 bpm from both the lower and upper end of the zone. Also decrease the duration of your training sessions by at least 5 min or more. TRAINING BLOCK #5: Week 33-40, and beyond (continue training at this level or at previous intensities long-term): Mode: Stationary upright cycle (NO high intensity interval training): -HR = as tolerated, up to 125-135 bpm (primary guide) -Pedal rate = 55-60 rpm. -Andrews = 50-60 (Make minor adjustments to wheel resistance settings in order to achieve target HR zone, as needed) -Rating of perceived exertion (RPE) = 12-14 (refer to above 6-20 scale) Or, as tolerated, you may want to integrate the treadmill as an option, Mode: Treadmill (no sprinting; NO high intensity interval training): -HR = as tolerated, up to 125-135 bpm (primary guide) -Speed = 3.0 mph, Grade = 0.0 to 3.5 % grade up to (as tolerated) Speed = 4.0 mph, Grade = 0.0 to 2.0 % grade. (Make minor adjustments to achieve target HR zone, as needed) -Rating of perceived exertion (RPE) = 12-14 (refer to above 6-20 scale) Frequency per week: -At least 4 days (up to 6 days, as tolerated) Weeks 33-36: Total minutes per day (not including warm-up and cool-down time): -as tolerated, up to 40 min (do not exceed time even if you feel the urge to do so) *As tolerated, your exercise can be performed as consecutive minutes. If needed, it is ok if you stop exercise early and begin the active cool-down period. Weeks 37-40, and beyond (continue training at this level or at previous intensities long-term): Total minutes per day (not including warm-up and cool-down time): -as tolerated, up to 45 min (do not exceed time even if you feel the urge to do so) *As tolerated, your exercise can be performed as consecutive minutes. If needed, it is ok if you stop exercise early and begin the active cool-down period. -If for any reason you have to miss multiple training days in succession (for example, more than 3) in a given week(s), upon resuming your exercise training it would be reasonable to briefly dial back the HR zone intensity and session duration in order to more appropriately re-introduce physical stress to your body. *For example, for 1 week, decrease the HR zone you had been previously working at prior to the time away by at least 5 bpm from both the lower and upper end of the zone. Also decrease the duration of your training sessions by at least 5 min or more. *Exercise cool-down period for exercise sessions*: DO NOT SKIP THE COOL DOWN PERIOD EVER. *Skipping the cool down will increase the likelihood you will experience an increase and persistence of symptoms following exercise. *Duration: 5-10 min (take longer time to cool-down as needed. This period should feel very easy, RPE = 6 to 8, refer to above 6-20 scale). -Modality: *Semi recumbent Bicycle resistance: none *Pedal rate: 30-35 rpm or lower *Stationary upright cycle resistance: none *Pedal rate: 30-35 rpm or lower -Intensity: Rating of perceived exertion (RPE)= 6-8 (use the above 6-20 scale) -Treadmill: 0.0 % grade at a modest/low level walking pace. -Intensity: Rating of perceived exertion (RPE)= 6-8 (use the above 6-20 scale) Physical Activity associated with daily living: *On days where you feel as if you have more energy and less symptoms than most other days, be extremely mindful to avoid over-exerting yourself by trying to fit into your schedule too many activities and/or to-do list items . This type of running around busy day will often be followed by several days of more severe symptoms until your body is able to fully rest and recover. This can become a weekly cycle that is difficult to break if you do not intentionally manage your energy and intensity on your good days . *If there are days where you do not exercise using above equipment, it may help your symptom management to minimize consecutive minutes spent sedentary. *Throughout the day when you are performing activities of daily living, it may help to keep your exertion level within the 6 to 8 RPE range. Take many short breaks throughout the day as needed. *It may help to be mindful of the cumulative impact that concentrated doses of physical exertion associated with activities of daily living can have on your symptoms. *It may help to avoid frequent steep incline walking and frequently moving up-and-down stairs, particularly when carrying items. *It may help to avoid standing in place for extended periods of time. Break up the time by casually pacing around the room for several minutes. Resistance/Strength Training (OPTIONAL): When you have been consistent with your aerobic exercise and have finished Training Block #3 (from above), as tolerated and after self-assessment of your symptoms experienced while engaging in the above exercises, you may have interest in participating in low resistance/high repetition muscle toning exercise to large muscle groups of upper (back/chest) and lower (legs) extremities as well as core (stomach muscles). As needed, I recommend you seek instruction from a trained professional for proper technique and movement execution. *Always perform aerobic exercise training first. Keep the total time spent performing these weight lifting exercises on a given training day to less than 25 min. This should not be the focus of your exercise plan. *For each strength/resistance exercise, use weights that can be lifted 12 to 20 repetitions to local fatigue. *Perform 1 to 2 sets of each exercise/session at 2 to 3 times per week on nonconsecutive days. *Do not aim to keep your heart rate elevated during resistance/strength training. *Avoid straining and holding breath while lifting. *Avoid standing in place while lifting weights. When possible, you should be seated when lifting weights. *Avoid overhead strength training exercises when standing. For example, do not engage in shoulder press exercise when standing. *Avoid plank exercises. Do not do full sit-ups. Do not do oblique twist exercises.Do not do lying bicycle ab workout. Do not do hanging leg raises. *Control rate of lifting and lowering weights. *Do not perform speed circuit training. No Cross-Fit or P90X style of workouts. *Avoid whole body exercise involving dynamic and large postural shifts (for example, lunges, squats, Burpee, squat to push press, step ups, plyometrics, etc.). *Traditional YOGA / Pilates poses can cause immediate lightheadedness/dizziness symptoms. Therefore, please modify movements as needed. Performing movements while only seated on the ground can be an effective modification. Exercise and General Precautions: The following noted points are examples of things to consider when starting an exercise plan designed to assist you in managing the severity of symptoms you experience associated with your medical history. 1. Consistently drink water throughout the day in small sips/quantities to help your symptoms when standing (evidence-based research: Charli Parra, Carter VE, Ulises LJ, et al. Water drinking acutely improves orthostatic tolerance in healthy subjects. Circulation. 2002;106(22):0013-9896). Do not gulp or chug water. Slowly drink 8 ounces of water or sports drink 30 minutes before exercise (for example, low calorie options are Powerade zero, G2, propel fitness water, Vitamin Water, Nuun electrolyte tablets, Liquid IV, etc.). 2. Drink 3-5 ounces of water or sports drink every 15 minutes of exercise. DO NOT drink caffeine prior to exercise. 3. Perform both the warm up and cool down periods as described above. 4. If symptoms worsen at any point during the exercise progression, return to previous level of exercise that was well tolerated for one week, then re-attempt next level of exercise. 5. When possible, use of heart rate monitors during exercise are helpful to maintain and monitor exercise intensity based on the target heart rate ranges listed above. *Commercial brands include for example: *Space Apart Watch ([employer].[place]. TrailMaps, Spinal Ventures, Socrata, etc); *POLAR chest strap (model: H10 with any POLAR wrist watch); *Garmin chest strap (model: HRM-Pro Plus with any Garmin watch); *Fengxiafei 5 or 7 sport watch *Commercial heart rate monitors are not medical devices and the information acquired from these devices should not be used to make medical diagnostic decisions. *Do NOT monitor your HR while performing activities of daily living or other types of quick physical movements throughout your day. 6. Change only one aspect of your exercise routine at one time (for example, mode, duration, frequency, or intensity). 7. When possible, if it has been recommended to you by Dr. Funes to wear medical grade compression stockings, please consider wearing these during exercise. Wear compression stockings throughout the day, but remove at night while sleeping. 8. If needed, monitor resting blood pressures (try to take at same time of day and location in your home each day). Hold exercise for the day if resting BP is >160/90 mmHg. 9. Continue to take medications as prescribed by Dr. Funes and other caregivers. 10. As needed, annual in-office visit to [facility]. This should include exercise stress testing and updates to the exercise prescription. As needed, if you have questions at the 6-8 month time point, please consider using the Virtual Visit platform. A Virtual Visit may be appropriate as long as you have a webcam on your computer or smart phone. Visit [email or web address] to download the guide. Questions? Contact technical support at [phone]. *Guide for Video Visits on Your Computer: [email or web address]/files/org/online-The X Traini nikunj/jbsdekz-jkxgj-[email or web address]/desktop -[email or web address]?la=en *Guide for Video Visits on the Mobile Saima: [email or web address]/- /Find That Filessets/files/org/online-The X Traini nikunj/imbwzkc-vrmay-wtxvck/mobile- guide.ashx?la=en 11. It may help to avoid engaging in body movements during exercise or activities of daily living requiring rapid changes in body position (for example, lunge exercise, squats, etc.), long periods of time standing still, frequent bending down and up, or carrying weighted items long distances/up/down stairs. 12. It may help to avoid impulsive behaviors and frequent short bursts of physical actions throughout your day and across days of the week. This can cause surges in adrenaline throughout your body, which can contribute to symptoms, such as palpitations/racing heart feelings and delayed onset fatigue. 13. It may help to try to keep frequency and intensity level (modest to moderate) of physical activity associated with engaging in activities of daily living consistent over the course of each day as well as on a day-to-day basis. For example, it may be helpful for you to keep an equal balance of time spent between engaging in activities of daily living and rest to a 1 to 2 ratio. An example of this would be, 20 min of modest intensity house work followed by 40 min of rest. 14. It may help to avoid extended periods of sedentary time. Other than sleep at night, you should consider not lying or sitting for more than 60 consecutive minutes without getting up and walking at a mild pace for 5-10 minutes. Breaking up the time you spend in a sedentary position can help allow muscles in your legs to help pump blood throughout your body. 15. When eating, please consider avoiding large meals and large portions. Smaller meals and portion sizes are better for blood circulation associated with digestion. General recommendation for heart health is the mediterranean style diet ([email or web address]://health.[facility]. [email or web address]/dra-mah-szqvno-a-mediterrane an-diet/). Activity guidelines were established based on evidence-based research and expert recommendations outlined in: *Alfredo et al. 'Effects of exercise training on arterial-cardiac baroreflex function in POTS,' Clin Auton Res. 21:73-80, 2010 *Vimal et al. JACC. 2010;55:2858-68 *Lul et al. The international POTS registry: Evaluating the efficacy of an exercise training intervention in a community setting. Heart Rhythm. 2016; 13:943-950 *Alvino MARTINEZ, Yazmin A, Job F, et al. Sinus Tachycardia: a Multidisciplinary Expert Focused Review. Circulation. Arrhythmia and electrophysiology. 2021;15(9):u840203. *Eric Grossman et al. High Submaximal Exercise Heart Rate Impacts Exercise Intolerance in the Postural Orthostatic Tachycardia Syndrome. Journal of Cardiopulmonary Rehabilitation and Prevention. 2019; 1-7. DOI: 10.1097/HCR.3115817340772570 *Valentino Dean Van Iterson EH, Daphne NGUYEN, Alvino MARTINEZ. ST-segment changes during tilt table testing for postural tachycardia syndrome: correlation with exercise stress test results. Clinical autonomic research: official journal of the Clinical Autonomic Research Society. 2020;30:79-83. *Tanner Dumont Van Iterson EH, et al. Functional capacity and quality of life in the postural tachycardia syndrome: A retrospective cross-sectional study. Annals of Medicine and Surgery. 2020. https://doi.org/10.1016/j.amsu.2 020.06.013 FOLLOW UP: *Continue routine follow up with your referring provider, Dr. Funes, for ongoing/additional discussions regarding other aspects of your symptom management plan. *As needed, annual in-office visit to [facility]. This should include exercise stress testing and updates to the exercise prescription. *As needed, Virtual Visit (Visit: [email or web address]. Questions? Contact technical support at [phone]) in 6-8 months for follow up discussions regarding progress made with your exercise plan. *If you would like more information on cardiac rehabilitation, please visit our dedicated [facility] web-page aimed at providing evidence-based information on heart health at the following, [email or web address] . Thank you for your visit with us today in [facility] Rehabilitation. Steve Guzman, PhD Director, Cardiac Rehabilitation Staff, Section of Preventive Cardiology & Rehabilitation Heart and Vascular [place] [facility] [address] [place] [address] Office: [phone] Appointment Desk: [phone] option #3 documented in this encounter [facility] 10-30-2022 Note HNO ID: [id number] Author: Kylie Mcfarland APRN.GABRIELLE Service: ? Author Type: Nurse Practitioner Type: Progress Notes Filed: 10/31/2022 11:39 AM Note Text: Heart and Vascular [place] Vaibhav Elena Department of Cardiovascular Medicine Section of Preventive Cardiology and Rehabilitation POTS Consult 10/30/2022 Shagufta Murray CHIEF COMPLAINT Ms. Shagufta Murray is a 17 year old White female seen today. Patient presents with: Exercise Prescription : POTS PAST MEDICAL HISTORY Diagnosis Date Other infants, unspecified (weight)(765.10) 5 weeks early Palpitations Postural orthostatic tachycardia syndrome 08/21/2022 Syncope Unspecified and jaundice PAST SURGICAL HISTORY Procedure Laterality Date NONE Known Structural Heart Disease: Unknown, no echo reports for review. PAST FAMILY AND SOCIAL HISTORY: FAMILY HISTORY Problem Relation Age of Onset other (negative family history [Other]) Other Social History Tobacco Use Smoking status: Never Smokeless tobacco: Never Vaping Use Vaping Use: Never used Substance Use Topics Alcohol use: Not Currently Drug use: Not Currently ALLERGIES: ALLERGIES No Known Allergies MEDICATIONS: Current Outpatient Medications Medication Sig propranolol (INDERAL) 10 mg tablet Take 1 tablet by mouth three times daily. levonorgestrel (NAOMY) 14 mcg/24 hrs (3 yrs) 13.5 mg IUD IUD Levonorgestrel (Naomy) 14 mcg/24 hrs (3 yrs) 13.5 mg intrauterine device Active 1 DEVICE INTRA-UTER ONCE January 26, 2020 11:00pm as a single dose Current Facility-Administered Medications Medication Dose Route Frequency perflutren lipid microspheres 1.3 mL in NaCl (PF) 0.9% 10 mL injection (DEFINITY) INTRAVENOUS DIRECTED PRN sodium chloride 0.9 % (flush) 10 mL (BD POSIFLUSH) 10 mL INTRAVENOUS DIRECTED PRN PATIENT ENTERED QUESTIONNAIRE SCORES PHQ-9 10/28/2022 Score 5 CANDELARIA - 7 SCORES 10/28/2022 CANDELARIA-7 Score 0 PROMIS Global Health - (T-Scores - the mean of general population = 50. Five points is a clinically meaningful difference.) 10/28/2022 10/26/2021 Physical T-Score 37.4 54.1 Mental T-Score 67.6 59 CURRENT DIAGNOSIS RELATED SYMPTOMS: Episodes of syncope began 04/2021. Was observing a surgery and then when stood from a seated position became lightheaded followed by syncope. Reports she has 10-12 syncopal episodes per week (has improved since propranolol). Typically occur with postural change or prolonged standing. Prodrome includes lightheadedness, SOB, palpitations, diaphoresis and visual changes. Additionally she can experience palpitations that are painful, has fatigue, EDWARDS and chest pain. LIFESTYLE: Consumes 2-3 water bottles per day, 3-4 sugar free Gatorade daily, adds salt to food, wears knee high compression stockings and exercises 2x/week by walking or jogging. More cautious when sitting up. Will also wear compression leggings, does keep a BP cuff handy if needed. EXERCISE: History: Prior to fainting was going to the gym 2x/week (not currently), some light cardio (elliptical), some strength training. Stopped once started having fainting episodes and SOB[place]. Did a 2 mile bike ride last week and HR of 180 bpm. Access to Exercise Equipment: full gym at Mom's work. Apple watch. Barriers: hard time catching breath, heart rate will get very high quickly. Fatigue, out of shape. CLINICAL TESTING RESULTS: Exercise Test Shagufta Murray demonstrated an end exercise capacity equal to 9.4 METS (protocol, rubin 10), while being free from signs and symptoms of ischemia on October 30, 2022. her end-exercise heart rate was 181 bpm (5 H since PROPRANOLOL), whereas her relative end-exercise heart rate was 90 % of her age predicted response. The exercise test was terminated because of general fatigue. Dyspnea (8, 0-10 scale). Angina was not provoked by stress No ST segment changes No clinically significant arrhythmias Normal exercise blood pressure See Epic results for finalized test report and interpretations. Test Impression: Estimated end-exercise METS achieved is below the 50th percentile for age and sex. AEROBIC EXERCISE PLAN FOR SYMPTOM MANAGEMENT: Initiate the self-supervised exercise prescription for Postural Orthostatic Tachycardia Syndrome (POTS) symptom management as outlined below: *Participation in structured exercise as recommended below constitutes a SINGLE aspect of your POTS symptom management plan and should not be viewed as the only factor responsible for managing the severity of your symptoms. *Structured, consistent, and specific exercise is therapeutic and can provide you with a dose-benefit response. This means the more consistent you can be with performing intentional exercise at a safe and appropriate intensity, the more likely you are to see the benefits (more content not included)... [facility] 10-30-2022 History of Present illness Narrative Images from the original note were not included. Heart and Vascular [place] Vaibhav Elena Department of Cardiovascular Medicine Section of Preventive Cardiology and Rehabilitation POTS Consult 10/30/2022 Shagufta Murray CHIEF COMPLAINT Ms. Shagufta Murray is a 17 year old White female seen today. Patient presents with: Exercise Prescription : POTS PAST MEDICAL HISTORY Diagnosis Date Other infants, unspecified (weight)(765.10) 5 weeks early Palpitations Postural orthostatic tachycardia syndrome 08/21/2022 Syncope Unspecified and jaundice PAST SURGICAL HISTORY Procedure Laterality Date NONE Known Structural Heart Disease: Unknown, no echo reports for review. PAST FAMILY AND SOCIAL HISTORY: FAMILY HISTORY Problem Relation Age of Onset other (negative family history [Other]) Other Social History Tobacco Use Smoking status: Never Smokeless tobacco: Never Vaping Use Vaping Use: Never used Substance Use Topics Alcohol use: Not Currently Drug use: Not Currently ALLERGIES: ALLERGIES No Known Allergies MEDICATIONS: Current Outpatient Medications Medication Sig propranolol (INDERAL) 10 mg tablet Take 1 tablet by mouth three times daily. levonorgestrel (NAOMY) 14 mcg/24 hrs (3 yrs) 13.5 mg IUD IUD Levonorgestrel (Naomy) 14 mcg/24 hrs (3 yrs) 13.5 mg intrauterine device Active 1 DEVICE INTRA-UTER ONCE January 26, 2020 11:00pm as a single dose Current Facility-Administered Medications Medication Dose Route Frequency perflutren lipid microspheres 1.3 mL in NaCl (PF) 0.9% 10 mL injection (DEFINITY) INTRAVENOUS DIRECTED PRN sodium chloride 0.9 % (flush) 10 mL (BD POSIFLUSH) 10 mL INTRAVENOUS DIRECTED PRN PATIENT ENTERED QUESTIONNAIRE SCORES PHQ-9 10/28/2022 Score 5 CANDELARIA - 7 SCORES 10/28/2022 CANDELARIA-7 Score 0 PROMIS Global Health - (T-Scores - the mean of general population = 50. Five points is a clinically meaningful difference.) 10/28/2022 10/26/2021 Physical T-Score 37.4 54.1 Mental T-Score 67.6 59 CURRENT DIAGNOSIS RELATED SYMPTOMS: Episodes of syncope began 04/2021. Was observing a surgery and then when stood from a seated position became lightheaded followed by syncope. Reports she has 10-12 syncopal episodes per week (has improved since propranolol). Typically occur with postural change or prolonged standing. Prodrome includes lightheadedness, SOB, palpitations, diaphoresis and visual changes. Additionally she can experience palpitations that are painful, has fatigue, EDWARDS and chest pain. LIFESTYLE: Consumes 2-3 water bottles per day, 3-4 sugar free Gatorade daily, adds salt to food, wears knee high compression stockings and exercises 2x/week by walking or jogging. More cautious when sitting up. Will also wear compression leggings, does keep a BP cuff handy if needed. EXERCISE: History: Prior to fainting was going to the gym 2x/week (not currently), some light cardio (elliptical), some strength training. Stopped once started having fainting episodes and SOB. [place] and will walk laps or jog around the farm. Did a 2 mile bike ride last week and HR of 180 bpm. Access to Exercise Equipment: full gym at Mom's work. Apple watch. Barriers: hard time catching breath, heart rate will get very high quickly. Fatigue, out of shape. CLINICAL TESTING RESULTS: Exercise Test Shagufta Murray demonstrated an end exercise capacity equal to 9.4 METS (protocol, rubin 10), while being free from signs and symptoms of ischemia on October 30, 2022. her end-exercise heart rate was 181 bpm (5 H since PROPRANOLOL), whereas her relative end-exercise heart rate was 90 % of her age predicted response. The exercise test was terminated because of general fatigue. Dyspnea (8, 0-10 scale). Angina was not provoked by stress No ST segment changes No clinically significant arrhythmias Normal exercise blood pressure See Epic results for finalized test report and interpretations. Test Impression: Estimated end-exercise METS achieved is below the 50th percentile for age and sex. AEROBIC EXERCISE PLAN FOR SYMPTOM MANAGEMENT: Initiate the self-supervised exercise prescription for Postural Orthostatic Tachycardia Syndrome (POTS) symptom management as outlined below: *Participation in structured exercise as recommended below constitutes a SINGLE aspect of your POTS symptom management plan and should not be viewed as the only factor responsible for managing the severity of your symptoms. *Structured, consistent, and specific exercise is therapeutic and can provide you with a dose-benefit response. This means the more consistent you can be with performing intentional exercise at a safe and appropriate intensity, the more likely you are to see the benefits of exercise training for managing your symptoms. *DO NOT engage in maximal intensity exercise and/or other forms of high intensity physical exertion for your symptom management plan. NO high intensity interval training. *Participating in high/severe intensity physical exertion regardless of whether it occurs in a gym or elsewhere will commonly result in feeling the need to rest/recover for up to 3-4 days before feeling energy and physical endurance levels return to a higher baseline. *Consistently drink water throughout the day in small sips/quantities. Not drinking enough water throughout the day will increase the likelihood your heart rate will rise to levels higher than typical while at rest as well as when changing body positions from sitting to standing. *Do not gulp or chug water. Aerobic Exercise Training: -Choose a time of day (whatever your preference) where you will be able to consistently exercise on a regular basis. Controlling this factor (along with the others) will help you better understand how your body responds to exercise and other types of physical exertion. Subjective exercise intensity scale Rating of perceived exertion (RPE) scale (6-20): *When guiding exercise training intensities, inclusively consider *HR zones (primary guide)*, workload zones, symptoms, and RPE zones. *If you need to make adjustments to the recommended exercise machine settings (noted below) in order to achieve your target HR zone this is perfectly ok. *Commercial brands include for example (other brands are available outside the ones listed below): *Smart Watch ([employer].S. TrailMaps, Spinal [employer]ures, Socrata, etc); *POLAR chest strap (model: H10 with any POLAR wrist watch, such as the POLAR UNITE); *Garmin chest strap (model: HRM-Pro Plus with any Garmin watch, such as the VIVOSMART 5); *SuSurvmetricso 5 or 7 sport watch *Commercial heart rate monitors are not medical devices and the information acquired from these devices should not be used to make medical diagnostic decisions. *Do NOT monitor your HR while performing activities of daily living or other types of quick physical movements throughout your day. *If any exercise occurs outdoors, it will be more difficult to maintain consistent control of your HR response to exercise due to numerous environmental and terrain factors. *You can also expect to expend more energy when performing your exercise outdoors due the influences of numerous environmental and terrain factors. Therefore, take a more conservative approach when performing your exercise training outdoors. *Consider the timing of when you take your b-crissy therapy (PROPRANOLOL) relative to when you exercise, particularly as it relates to basing exercise intensity on HR training zones. *This medication can impact how high your HR rises during exercise. As best as possible, keep the time difference between when you take your b-crissy and when you exercise as consistent as possible. *For example, if you exercise 8 hours after taking your b-crissy you could expect to see your heart rate rise to higher levels compared with if you exercised within the 1 to 3 hour window after taking the medication. Keep this in mind so you have a better understanding of why your heart rate during exercise might differ day-to-day. *Slowly drink 8-12 ounces of water or sports drink within the 30 minutes before exercise (for example, low calorie sugar-free options are Powerade zero, G2, propel fitness water, Vitamin Water, Nuun electrolyte tablets, Liquid IV, etc.). *If you begin exercise without having taken in enough fluid throughout the day, it will be easier for your body temperature to rise quickly and lead to the feeling of being overheated. *Continue to drink fluid throughout exercise and the recovery period as needed. *DO NOT drink caffeine prior to exercise. *Warm-up exercise period immediately prior to performing sessions*: DO NOT SKIP THE WARM UP EVER. The warm up should be performed on the exact piece of equipment you plan on performing your exercise training that day. Do not perform multiple warm up periods on different pieces of equipment. *Skipping the warm up will increase the likelihood you will experience an increase in symptoms during exercise. -Duration: at least 6-8 min (take longer time to warm-up as needed). -Modality: *Semi recumbent cycle, resistance: none *Pedal rate: 30-35 rpm or lower *Stationary upright cycle, resistance: none *Pedal rate: 30-35 rpm or lower -Take as much time as you need after to allow your body to get settled after changing body positions from standing to sitting. -Intensity: heart rate (HR) = 85-90 bpm and Rating of perceived exertion (RPE)= 6-8 (use the above 6-20 scale) -(eventually in your exercise progression) Treadmill: 0.0 % grade at a modest/low level walking pace. -Intensity: heart rate (HR) = 95-100 bpm and Rating of perceived exertion (RPE)= 6-8 (use the above 6-20 scale) *Aerobic Exercise Sessions by Week and Modality*: -Only progress to the next training block of your program if you are able to consistently perform your exercise without experiencing any worsening of your symptoms. -If for any reason you have to miss multiple training days in succession (for example, more than 3) in a given week(s), upon resuming your exercise training it would be reasonable to briefly dial back the HR zone intensity and session duration in order to more appropriately re-introduce physical stress to your body. *For example, for 1 week, decrease the HR zone you had been previously working at prior to the time away by at least 5 bpm from both the lower and upper end of the zone. Also decrease the duration of your training sessions by at least 5 min or more. TRAINING BLOCK #1: Week 1-8 or longer (this is the minimum number of weeks. If necessary, make this training block as long as you need): Mode: Semi recumbent cycle (NO high intensity interval training): -HR = as tolerated, up to 105-110 bpm (primary guide) -Pedal rate = 55-60 rpm. -Andrews = 35-45 . (Make minor adjustments to wheel resistance settings in order to achieve target HR zone, as needed) -Rating of perceived exertion (RPE) = 10-12 (refer to above 6-20 scale) Frequency per week: -At least 4 days (up to 5 days, as tolerated) Weeks 1-4: Total minutes per day (not including warm-up and cool-down time): -as tolerated, up to 20 min (do not exceed time even if you feel the urge to do so) *As tolerated, your exercise can be performed as consecutive minutes. If needed, it is ok if you stop exercise early and begin the active cool-down period. Weeks 5-8: Total minutes per day (not including warm-up and cool-down time): -as tolerated, up to 25 min (do not exceed time even if you feel the urge to do so) *As tolerated, your exercise can be performed as consecutive minutes. If needed, it is ok if you stop exercise early and begin the active cool-down period. -Only progress to the next training block of your program if you are able to consistently perform your exercise without experiencing any worsening of your symptoms. -If for any reason you have to miss multiple training days in succession (for example, more than 3) in a given week(s), upon resuming your exercise training it would be reasonable to briefly dial back the HR zone intensity and session duration in order to more appropriately re-introduce physical stress to your body. *For example, for 1 week, decrease the HR zone you had been previously working at prior to the time away by at least 5 bpm from both the lower and upper end of the zone. Also decrease the duration of your training sessions by at least 5 min or more. TRAINING BLOCK #2: Week 9-16 or longer (this is the minimum number of weeks. If necessary, make this training block as long as you need): Mode: Stationary upright cycle (NO high intensity interval training): -HR = as tolerated, up to 110-115 bpm (primary guide) -Pedal rate = 55-60 rpm. -Andrews = 35-45 . (Make minor adjustments to wheel resistance settings in order to achieve target HR zone, as needed) -Rating of perceived exertion (RPE) = 11-13 (refer to above 6-20 scale) Frequency per week: -At least 4 days (up to 5 days, as tolerated) Weeks 9-12: Total minutes per day (not including warm-up and cool-down time): -as tolerated, up to 25 min (do not exceed time even if you feel the urge to do so) *As tolerated, your exercise can be performed as consecutive minutes. If needed, it is ok if you stop exercise early and begin the active cool-down period. Weeks 13-16: Total minutes per day (not including warm-up and cool-down time): -as tolerated, up to 30 min (do not exceed time even if you feel the urge to do so) *As tolerated, your exercise can be performed as consecutive minutes. If needed, it is ok if you stop exercise early and begin the active cool-down period. -Only progress to the next training block of your program if you are able to consistently perform your exercise without experiencing any worsening of your symptoms. -If for any reason you have to miss multiple training days in succession (for example, more than 3) in a given week(s), upon resuming your exercise training it would be reasonable to briefly dial back the HR zone intensity and session duration in order to more appropriately re-introduce physical stress to your body. *For example, for 1 week, decrease the HR zone you had been previously working at prior to the time away by at least 5 bpm from both the lower and upper end of the zone. Also decrease the duration of your training sessions by at least 5 min or more. TRAINING BLOCK #3: Week 17-24 or longer (this is the minimum number of weeks. If necessary, make this training block as long as you need): Mode: Stationary upright cycle (NO high intensity interval training): -HR = as tolerated, up to 115-120 bpm (primary guide) -Pedal rate = 55-60 rpm. -Andrews = 40-50 (Make minor adjustments to wheel resistance settings in order to achieve target HR zone, as needed) -Rating of perceived exertion (RPE) = 12-14 (refer to above 6-20 scale) Frequency per week: -At least 4 days (up to 6 days, as tolerated) Weeks 17-20: Total minutes per day (not including warm-up and cool-down time): -as tolerated, up to 30 min (do not exceed time even if you feel the urge to do so) *As tolerated, your exercise can be performed as consecutive minutes. If needed, it is ok if you stop exercise early and begin the active cool-down period. Weeks 21-24: Total minutes per day (not including warm-up and cool-down time): -as tolerated, up to 35 min (do not exceed time even if you feel the urge to do so) *As tolerated, your exercise can be performed as consecutive minutes. If needed, it is ok if you stop exercise early and begin the active cool-down period. -Only progress to the next training block of your program if you are able to consistently perform your exercise without experiencing any worsening of your symptoms. -If for any reason you have to miss multiple training days in succession (for example, more than 3) in a given week(s), upon resuming your exercise training it would be reasonable to briefly dial back the HR zone intensity and session duration in order to more appropriately re-introduce physical stress to your body. *For example, for 1 week, decrease the HR zone you had been previously working at prior to the time away by at least 5 bpm from both the lower and upper end of the zone. Also decrease the duration of your training sessions by at least 5 min or more. TRAINING BLOCK #4: Week 25-32 or longer (this is the minimum number of weeks. If necessary, make this training block as long as you need): Mode: Stationary upright cycle (NO high intensity interval training): -HR = as tolerated, up to 120-125 bpm (primary guide) -Pedal rate = 55-60 rpm. -Andrews = 45-55 (Make minor adjustments to wheel resistance settings in order to achieve target HR zone, as needed) -Rating of perceived exertion (RPE) = 12-14 (refer to above 6-20 scale) Or, as tolerated, you may want to integrate the treadmill as an option, Mode: Treadmill (no jogging; no sprinting; NO high intensity interval training): -HR = as tolerated, up to 120-125 bpm (primary guide) -Speed = 3.0 mph, Grade = 0.0 to 2.5 % grade up to (as tolerated) Speed = 3.3 mph, Grade = 0.0 to 2.0 % grade. (Make minor adjustments to achieve target HR zone, as needed) -Rating of perceived exertion (RPE) = 12-14 (refer to above 6-20 scale) Frequency per week: -At least 4 days (up to 6 days, as tolerated) Weeks 25-28: Total minutes per day (not including warm-up and cool-down time): -as tolerated, up to 35 min (do not exceed time even if you feel the urge to do so) *As tolerated, your exercise can be performed as consecutive minutes. If needed, it is ok if you stop exercise early and begin the active cool-down period. Weeks 29-32: Total minutes per day (not including warm-up and cool-down time): -as tolerated, up to 40 min (do not exceed time even if you feel the urge to do so) *As tolerated, your exercise can be performed as consecutive minutes. If needed, it is ok if you stop exercise early and begin the active cool-down period. -Only progress to the next training block of your program if you are able to consistently perform your exercise without experiencing any worsening of your symptoms. -If for any reason you have to miss multiple training days in succession (for example, more than 3) in a given week(s), upon resuming your exercise training it would be reasonable to briefly dial back the HR zone intensity and session duration in order to more appropriately re-introduce physical stress to your body. *For example, for 1 week, decrease the HR zone you had been previously working at prior to the time away by at least 5 bpm from both the lower and upper end of the zone. Also decrease the duration of your training sessions by at least 5 min or more. TRAINING BLOCK #5: Week 33-40, and beyond (continue training at this level or at previous intensities long-term): Mode: Stationary upright cycle (NO high intensity interval training): -HR = as tolerated, up to 125-135 bpm (primary guide) -Pedal rate = 55-60 rpm. -Andrews = 50-60 (Make minor adjustments to wheel resistance settings in order to achieve target HR zone, as needed) -Rating of perceived exertion (RPE) = 12-14 (refer to above 6-20 scale) Or, as tolerated, you may want to integrate the treadmill as an option, Mode: Treadmill (no sprinting; NO high intensity interval training): -HR = as tolerated, up to 125-135 bpm (primary guide) -Speed = 3.0 mph, Grade = 0.0 to 3.5 % grade up to (as tolerated) Speed = 4.0 mph, Grade = 0.0 to 2.0 % grade. (Make minor adjustments to achieve target HR zone, as needed) -Rating of perceived exertion (RPE) = 12-14 (refer to above 6-20 scale) Frequency per week: -At least 4 days (up to 6 days, as tolerated) Weeks 33-36: Total minutes per day (not including warm-up and cool-down time): -as tolerated, up to 40 min (do not exceed time even if you feel the urge to do so) *As tolerated, your exercise can be performed as consecutive minutes. If needed, it is ok if you stop exercise early and begin the active cool-down period. Weeks 37-40, and beyond (continue training at this level or at previous intensities long-term): Total minutes per day (not including warm-up and cool-down time): -as tolerated, up to 45 min (do not exceed time even if you feel the urge to do so) *As tolerated, your exercise can be performed as consecutive minutes. If needed, it is ok if you stop exercise early and begin the active cool-down period. -If for any reason you have to miss multiple training days in succession (for example, more than 3) in a given week(s), upon resuming your exercise training it would be reasonable to briefly dial back the HR zone intensity and session duration in order to more appropriately re-introduce physical stress to your body. *For example, for 1 week, decrease the HR zone you had been previously working at prior to the time away by at least 5 bpm from both the lower and upper end of the zone. Also decrease the duration of your training sessions by at least 5 min or more. *Exercise cool-down period for exercise sessions*: DO NOT SKIP THE COOL DOWN PERIOD EVER. *Skipping the cool down will increase the likelihood you will experience an increase and persistence of symptoms following exercise. *Duration: 5-10 min (take longer time to cool-down as needed. This period should feel very easy, RPE = 6 to 8, refer to above 6-20 scale). -Modality: *Semi recumbent Bicycle resistance: none *Pedal rate: 30-35 rpm or lower *Stationary upright cycle resistance: none *Pedal rate: 30-35 rpm or lower -Intensity: Rating of perceived exertion (RPE)= 6-8 (use the above 6-20 scale) -Treadmill: 0.0 % grade at a modest/low level walking pace. -Intensity: Rating of perceived exertion (RPE)= 6-8 (use the above 6-20 scale) Physical Activity associated with daily living: *On days where you feel as if you have more energy and less symptoms than most other days, be extremely mindful to avoid over-exerting yourself by trying to fit into your schedule too many activities and/or to-do list items . This type of running around busy day will often be followed by several days of more severe symptoms until your body is able to fully rest and recover. This can become a weekly cycle that is difficult to break if you do not intentionally manage your energy and intensity on your good days . *If there are days where you do not exercise using above equipment, it may help your symptom management to minimize consecutive minutes spent sedentary. *Throughout the day when you are performing activities of daily living, it may help to keep your exertion level within the 6 to 8 RPE range. Take many short breaks throughout the day as needed. *It may help to be mindful of the cumulative impact that concentrated doses of physical exertion associated with activities of daily living can have on your symptoms. *It may help to avoid frequent steep incline walking and frequently moving up-and-down stairs, particularly when carrying items. *It may help to avoid standing in place for extended periods of time. Break up the time by casually pacing around the room for several minutes. Resistance/Strength Training (OPTIONAL): When you have been consistent with your aerobic exercise and have finished Training Block #3 (from above), as tolerated and after self-assessment of your symptoms experienced while engaging in the above exercises, you may have interest in participating in low resistance/high repetition muscle toning exercise to large muscle groups of upper (back/chest) and lower (legs) extremities as well as core (stomach muscles). As needed, I recommend you seek instruction from a trained professional for proper technique and movement execution. *Always perform aerobic exercise training first. Keep the total time spent performing these weight lifting exercises on a given training day to less than 25 min. This should not be the focus of your exercise plan. *For each strength/resistance exercise, use weights that can be lifted 12 to 20 repetitions to local fatigue. *Perform 1 to 2 sets of each exercise/session at 2 to 3 times per week on nonconsecutive days. *Do not aim to keep your heart rate elevated during resistance/strength training. *Avoid straining and holding breath while lifting. *Avoid standing in place while lifting weights. When possible, you should be seated when lifting weights. *Avoid overhead strength training exercises when standing. For example, do not engage in shoulder press exercise when standing. *Avoid plank exercises. Do not do full sit-ups. Do not do oblique twist exercises.Do not do lying bicycle ab workout. Do not do hanging leg raises. *Control rate of lifting and lowering weights. *Do not perform speed circuit training. No Cross-Fit or P90X style of workouts. *Avoid whole body exercise involving dynamic and large postural shifts (for example, lunges, squats, Burpee, squat to push press, step ups, plyometrics, etc.). *Traditional YOGA / Pilates poses can cause immediate lightheadedness/dizziness symptoms. Therefore, please modify movements as needed. Performing movements while only seated on the ground can be an effective modification. Exercise and General Precautions: The following noted points are examples of things to consider when starting an exercise plan designed to assist you in managing the severity of symptoms you experience associated with your medical history. 1. Consistently drink water throughout the day in small sips/quantities to help your symptoms when standing (evidence-based research: Charli C, Carter VE, Ulises LJ, et al. Water drinking acutely improves orthostatic tolerance in healthy subjects. Circulation. 2002;106(22):9565-9942). Do not gulp or chug water. Slowly drink 8 ounces of water or sports drink 30 minutes before exercise (for example, low calorie options are Powerade zero, G2, propel fitness water, Vitamin Water, Nuun electrolyte tablets, Liquid IV, etc.). 2. Drink 3-5 ounces of water or sports drink every 15 minutes of exercise. DO NOT drink caffeine prior to exercise. 3. Perform both the warm up and cool down periods as described above. 4. If symptoms worsen at any point during the exercise progression, return to previous level of exercise that was well tolerated for one week, then re-attempt next level of exercise. 5. When possible, use of heart rate monitors during exercise are helpful to maintain and monitor exercise intensity based on the target heart rate ranges listed above. *Commercial brands include for example: *Space Apart Watch ([employer], [employer], [employer], etc); *POLAR chest strap (model: H10 with any POLAR wrist watch); *Garmin chest strap (model: HRM-Pro Plus with any Garmin watch); *Fengxiafei 5 or 7 sport watch *Commercial heart rate monitors are not medical devices and the information acquired from these devices should not be used to make medical diagnostic decisions. *Do NOT monitor your HR while performing activities of daily living or other types of quick physical movements throughout your day. 6. Change only one aspect of your exercise routine at one time (for example, mode, duration, frequency, or intensity). 7. When possible, if it has been recommended to you by Dr. Funes to wear medical grade compression stockings, please consider wearing these during exercise. Wear compression stockings throughout the day, but remove at night while sleeping. 8. If needed, monitor resting blood pressures (try to take at same time of day and location in your home each day). Hold exercise for the day if resting BP is >160/90 mmHg. 9. Continue to take medications as prescribed by Dr. Funes and other caregivers. 10. As needed, annual in-office visit to [facility]. This should include exercise stress testing and updates to the exercise prescription. As needed, if you have questions at the 6-8 month time point, please consider using the Virtual Visit platform. A Virtual Visit may be appropriate as long as you have a webcam on your computer or smart phone. Visit [email or web address] to download the guide. Questions? Contact technical support at [phone]. *Guide for Video Visits on Your Computer: [email or web address] -[email or web address]?la=en *Guide for Video Visits on the Mobile Saima: [email or web address]- [email or web address]?la=en 11. It may help to avoid engaging in body movements during exercise or activities of daily living requiring rapid changes in body position (for example, lunge exercise, squats, etc.), long periods of time standing still, frequent bending down and up, or carrying weighted items long distances/up/down stairs. 12. It may help to avoid impulsive behaviors and frequent short bursts of physical actions throughout your day and across days of the week. This can cause surges in adrenaline throughout your body, which can contribute to symptoms, such as palpitations/racing heart feelings and delayed onset fatigue. 13. It may help to try to keep frequency and intensity level (modest to moderate) of physical activity associated with engaging in activities of daily living consistent over the course of each day as well as on a day-to-day basis. For example, it may be helpful for you to keep an equal balance of time spent between engaging in activities of daily living and rest to a 1 to 2 ratio. An example of this would be, 20 min of modest intensity house work followed by 40 min of rest. 14. It may help to avoid extended periods of sedentary time. Other than sleep at night, you should consider not lying or sitting for more than 60 consecutive minutes without getting up and walking at a mild pace for 5-10 minutes. Breaking up the time you spend in a sedentary position can help allow muscles in your legs to help pump blood throughout your body. 15. When eating, please consider avoiding large meals and large portions. Smaller meals and portion sizes are better for blood circulation associated with digestion. General recommendation for heart health is the mediterranean style diet ([email or web address]://health.[email or web address]. [email or web address]/xmb-[email or web address]-drvwyq-[email or web address]-mediterrane an-diet/). Activity guidelines were established based on evidence-based research and expert recommendations outlined in: *Alfredo et al. 'Effects of exercise training on arterial-cardiac baroreflex function in POTS,' Clin [place] Res. 21:73-80, 2010 *Vimal et al. JACC. 2010;55:2858-68 *Lul et al. The international POTS registry: Evaluating the efficacy of an exercise training intervention in a community setting. Heart Rhythm. 2016; 13:943-950 *Alvino MARTINEZ, Yazmin A, Job F, et al. Sinus Tachycardia: a Multidisciplinary Expert Focused Review. Circulation. Arrhythmia and electrophysiology. 2021;15(9):c229822. *Eric Grossman et al. High Submaximal Exercise Heart Rate Impacts Exercise Intolerance in the Postural Orthostatic Tachycardia Syndrome. Journal of Cardiopulmonary Rehabilitation and Prevention. 2019; 1-7. DOI: 10.1097/HCR.7837229582722134 *Tanner Moreno, Valentino Jansen, Eric CARLISLE, Daphne HM, Alvino MARTINEZ. ST-segment changes during tilt table testing for postural tachycardia syndrome: correlation with exercise stress test results. Clinical autonomic research: official journal of the Clinical Autonomic Research Society. 2020;30:79-83. *Ze CARLISLE, Tanner Moreno, Eric CARLISLE, et al. Functional capacity and quality of life in the postural tachycardia syndrome: A retrospective cross-sectional study. Annals of Medicine and Surgery. 2020. https://doi.org/10.1016/j.amsu.2 020.06.013 SUMMARY: Shagufta Murray is a 17 year old female who was referred to the [facility] by Dr. Funes because of POTS (ICD-10-CM, I49.8). Medical/surgical history also significant for: PAST MEDICAL HISTORY Diagnosis Date Other infants, unspecified (weight)(765.10) 5 weeks early Palpitations Postural orthostatic tachycardia syndrome 08/21/2022 Syncope Unspecified and jaundice PAST SURGICAL HISTORY Procedure Laterality Date NONE Shagufta Murray reports an irregular recent history of formal structured aerobic exercise. Results from Shagufta Murray's graded exercise test suggest they provided an adequate effort and demonstrate an estimated end-exercise METS below the 50th percentile for age and sex. Discussed the benefits of regular exercise, options for exercise, and strategies to achieve long-term adherence to this program aimed at symptom management. Shagufta Murray was instructed on monitoring target heart rate ranges and to use the RPE scale to guide intensity/progression of exercise. Shagufta Murray is very eager to engage in aforementioned exercise recommendations for symptom management. Individualized exercise guidelines for symptom management were developed based on Shagufta Murray's graded exercise test results, interests and goals, and comorbidities. FOLLOW UP: *Continue routine follow up with your referring provider, Dr. Funes, for ongoing/additional discussions regarding other aspects of your symptom management plan. *As needed, annual in-office visit to [facility]. This should include exercise stress testing and updates to the exercise prescription. *As needed, Virtual Visit (Visit: [email or web address]. Questions? Contact technical support at [phone]) in 6-8 months for follow up discussions regarding progress made with your exercise plan. *If you would like more information on cardiac rehabilitation, please visit our dedicated [facility] web-page aimed at providing evidence-based information on heart health at the following, [email or web address] . Thank you for your visit with us today in [facility]. Steve Guzman, PhD CHIEF COMPLAINT Shagufta Murray is a 17 year old White female seen today. Patient presents with: Exercise Prescription : POTS Heart sounds: S1/S2, RRR, no murmurs; Lung sounds: CTA bilaterally; Extremities: No significant edema. ASSESSMENT: ok to proceed with stress test for exercise guidelines PLAN The results of this assessment were discussed with the patient. We have mutually agreed upon the following plans and goals: Exercise and lifestyle guidance as above per miter sawyer. I have reviewed the documentation obtained and documented by the EP and have reviewed and updated the problem list as appropriate. I have personally performed a face to face assessment of the patient and have personally participated in the collins components. I have discussed the case and management of the patient's care. Kylie Mcfarland APRN.GABRIELLE PLAN The results of this assessment were discussed with the patient. We have mutually agreed upon the following plans and goals: Exercise guidelines as above Monitor response with chest strap heart rate monitor Log exercise Continue with other POTS management strategies as recommended by your physician Follow up as needed, in-person on an annual basis for exercise stress testing and discussion on updates to your exercise prescription. AMBULATORY PATIENT EDUCATION Topic: Exercise Instruction Provided To: Patient Discipline: EP Instructed By: Steve Guzman, PhD Motivation to Learn: Eager Family/SO Support: High Cognitive Ability: Alert/Oriented Learning Preference: Individual Instructions Barriers: None Diagnosis: Primary Prevention Lifestyle Changes: Exercise Understanding: Verbalize Understanding Follow up: Complete Methods of Instruction: Verbal instruction and/or handouts. documented in this encounter [facility] 09-18-2022 Miscellaneous Notes Messages left in regards to cardiac rehab order on 08-29-22, 09-04-22, 09-11-22 with no reply from patient Staff read in [employer] message that patient plans to participate in CR over summer break from school. documented in this encounter [facility] 08-29-2022 Miscellaneous Notes Left detailed message about cardiac rehab, requesting patient check with ins for coverage and limit of sessions. Patient asked to call back if would like to participate [phone] documented in this encounter [facility] 08-25-2022 Note HNO ID: [id number] Author: Emilee Funes, DO Service: ? Author Type: Physician Type: Progress Notes Filed: 08/25/2022 5:36 PM Note Text: Heart [facility] [place] [facility] Department of Cardiovascular Medicine SECTION OF CARDIAC PACING and ELECTROPHYSIOLOGY OUTPATIENT VISIT DATE August 25, 2022 OUTPATIENT VISIT TYPE ESTABLISHED PRIMARY CARE PHYSICIAN: Zaire Solano ([facility]) [address] [place] [address] CHIEF COMPLAINT: syncope HISTORY OF PRESENT ILLNESS: Ms. Murray is a 17 year old female who presents today for follow-up visit for syncope. She had been evaluated by Dr. Rivera her local extractor machine operator as well as neurology. She had a vasovagal response on tilt after NTG, but her burden of symptoms are not consistent with VVS as she reported 10-12 episodes a week. She had a number of associated symptoms detailed in my prior note. I recommended a repeat tilt here as NTG related changes can be misleading. We did see a response consistent with POTS as well as a vasovagal response. I also requested an event monitor an an echo. Tilt 08/21/22 - Overall: The test is positive and diagnostic for reflex vasovagal syncope with predominant vasodepressor response. The test is diagnostic for accentuated postural tachycardia AVG supine HR 76 bpm dHR 70/10 48bpm She had an active stand test as well that was normal Type of Monitor: Extended Monitoring-Zio Patch Enrollment Dates: 06/13/2022-06/27/2022 Predominant rhythm is sinus. Average HR 95 bpm. Rare PAC and PVC Nursing Intake: She continues to lose consciousness ten times a week. Usually with position changes (rarely when seated). She is out a couple seconds. She feels hot and clammy and feels her blood drain and her vision gets spotty. She tries to sit down or lower herself. This does not always prevent syncope but it does always help a little. She still has chest pains. She has some shortness of breath with exertion. She denies orthopnea, PND, cough or edema. She drinks 2-3 bottles of water a day and 3-4 sugar free Gatorades. She salts her food. She wears knee high compression garments. She walks and occasionally jogs. She does this twice a week. PAST CARDIAC HISTORY: None PAST MEDICAL HISTORY Diagnosis Date Other infants, unspecified (weight)(765.10) 5 weeks early Palpitations Syncope Unspecified and jaundice PAST SURGICAL HISTORY Procedure Laterality Date NONE SOCIAL HISTORY Social History Tobacco Use Smoking status: Never Smokeless tobacco: Never Vaping Use Vaping Use: Never used Substance Use Topics Alcohol use: Not Currently Drug use: Not Currently FAMILY HISTORY Problem Relation Age of Onset other (negative family history [Other]) Other ALLERGIES: ALLERGIES No Known Allergies MEDICATIONS: doxycycline monohydrate (MONODOX) 100 mg capsuleTAKE 1 CAPSULE BY MOUTH TWICE DAILY FOR 14 DAYSDisp: Rfl: fluconazole (DIFLUCAN) 150 mg tabletTAKE 1 TABLET BY MOUTH DAILY ON DAYS 1 AND 7Disp: Rfl: metroNIDAZOLE (FLAGYL) 500 mg tabletTAKE 1 TABLET BY MOUTH TWICE DAILY FOR 14 DAYS. AVOID ALCOHOL UNTIL 48 HOURS AFTER LAST DOSE.Disp: Rfl: levonorgestrel (NAOMY) 14 mcg/24 hrs (3 yrs) 13.5 mg IUD IUDLevonorgestrel (Naomy) 14 mcg/24 hrs (3 yrs) 13.5 mg intrauterine device Active 1 DEVICE INTRA-UTER ONCE January 26, 2020 11:00pm as a single doseDisp: Rfl: PHYSICAL EXAMINATION: There were no vitals taken for this visit. General: Well appearing, in no acute distress. Skin: No clubbing, no cyanosis. Eyes: Extra ocular movements intact Neck: No jugular venous distention, no carotid bruits, carotids have a normal upstroke, no palpable thyromegaly. Lungs: Clear to auscultation bilaterally, no wheezing or rhonchi. Heart: Regular rhythm, PMI not displaced, S1, S2 normal, no S3, no S4, no heaves, no rub and no murmur. Abdomen: Soft, nontender, bowel sounds normal, no palpable organomegaly, no bruits. Extremities: No peripheral edema . Grade 2/4 distal pulses bilaterally. Neuro: Oriented to person, place and time, alert, cooperative, gait coordinated. CARDIOVASCULAR MEDICINE TESTING: Electrocardiogram: sinus with sinus arrhythmia I have personally reviewed the Electrocardiogram. Assessment IMPRESSION: 1. Vasovagal syncope - ICD9: 780.2, ICD10: R55 (primary diagnosis) 2. POTS (postural orthostatic tachycardia syndrome) - ICD9: 427.89, ICD10: G90.A 3. Postural lightheadedness - ICD9: 780.4, ICD10: R42 4. Palpitations - ICD9: 785.1, ICD10: R00.2 PLAN AND RECOMMENDATIONS: I reviewed the results of the tilt with Shagufta and her mom and I explained both POTS and VVS I cautioned that POTS and VVS would not explain a frequency of TLOC of 10-20 times a week and so I recommend we start medical therapy but if these symptoms fail to improve then would refer to epilepsy for (more content not included)... [facility] 08-25-2022 History of Present illness Narrative Images from the original note were not included. [facility] [place] [facility] Department of Cardiovascular Medicine SECTION OF CARDIAC PACING and ELECTROPHYSIOLOGY OUTPATIENT VISIT DATE August 25, 2022 OUTPATIENT VISIT TYPE ESTABLISHED PRIMARY CARE PHYSICIAN: Zaire Solano (Josefa) [address] [place] [address] CHIEF COMPLAINT: syncope HISTORY OF PRESENT ILLNESS: Ms. Murray is a 17 year old female who presents today for follow-up visit for syncope. She had been evaluated by Dr. Rivera her local extractor machine operator as well as neurology. She had a vasovagal response on tilt after NTG, but her burden of symptoms are not consistent with VVS as she reported 10-12 episodes a week. She had a number of associated symptoms detailed in my prior note. I recommended a repeat tilt here as NTG related changes can be misleading. We did see a response consistent with POTS as well as a vasovagal response. I also requested an event monitor an an echo. Tilt 08/21/22 - Overall: The test is positive and diagnostic for reflex vasovagal syncope with predominant vasodepressor response. The test is diagnostic for accentuated postural tachycardia AVG supine HR 76 bpm dHR 70/10 48bpm She had an active stand test as well that was normal Type of Monitor: Extended Monitoring-Zio Patch Enrollment Dates: 06/13/2022-06/27/2022 Predominant rhythm is sinus. Average HR 95 bpm. Rare PAC and PVC Nursing Intake: She continues to lose consciousness ten times a week. Usually with position changes (rarely when seated). She is out a couple seconds. She feels hot and clammy and feels her blood drain and her vision gets spotty. She tries to sit down or lower herself. This does not always prevent syncope but it does always help a little. She still has chest pains. She has some shortness of breath with exertion. She denies orthopnea, PND, cough or edema. She drinks 2-3 bottles of water a day and 3-4 sugar free Gatorades. She salts her food. She wears knee high compression garments. She walks and occasionally jogs. She does this twice a week. PAST CARDIAC HISTORY: None PAST MEDICAL HISTORY Diagnosis Date Other infants, unspecified (weight)(765.10) 5 weeks early Palpitations Syncope Unspecified and jaundice PAST SURGICAL HISTORY Procedure Laterality Date NONE SOCIAL HISTORY Social History Tobacco Use Smoking status: Never Smokeless tobacco: Never Vaping Use Vaping Use: Never used Substance Use Topics Alcohol use: Not Currently Drug use: Not Currently FAMILY HISTORY Problem Relation Age of Onset other (negative family history [Other]) Other ALLERGIES: ALLERGIES No Known Allergies MEDICATIONS: doxycycline monohydrate (MONODOX) 100 mg capsule^TAKE 1 CAPSULE BY MOUTH TWICE DAILY FOR 14 DAYS^Disp: ^Rfl: fluconazole (DIFLUCAN) 150 mg tablet^TAKE 1 TABLET BY MOUTH DAILY ON DAYS 1 AND 7^Disp: ^Rfl: metroNIDAZOLE (FLAGYL) 500 mg tablet^TAKE 1 TABLET BY MOUTH TWICE DAILY FOR 14 DAYS. AVOID ALCOHOL UNTIL 48 HOURS AFTER LAST DOSE.^Disp: ^Rfl: levonorgestrel (NAOMY) 14 mcg/24 hrs (3 yrs) 13.5 mg IUD IUD^Levonorgestrel (Naomy) 14 mcg/24 hrs (3 yrs) 13.5 mg intrauterine device Active 1 DEVICE INTRA-UTER ONCE January 26, 2020 11:00pm as a single dose^Disp: ^Rfl: PHYSICAL EXAMINATION: There were no vitals taken for this visit. General: Well appearing, in no acute distress. Skin: No clubbing, no cyanosis. Eyes: Extra ocular movements intact Neck: No jugular venous distention, no carotid bruits, carotids have a normal upstroke, no palpable thyromegaly. Lungs: Clear to auscultation bilaterally, no wheezing or rhonchi. Heart: Regular rhythm, PMI not displaced, S1, S2 normal, no S3, no S4, no heaves, no rub and no murmur. Abdomen: Soft, nontender, bowel sounds normal, no palpable organomegaly, no bruits. Extremities: No peripheral edema . Grade 2/4 distal pulses bilaterally. Neuro: Oriented to person, place and time, alert, cooperative, gait coordinated. CARDIOVASCULAR MEDICINE TESTING: Electrocardiogram: sinus with sinus arrhythmia I have personally reviewed the Electrocardiogram. Assessment IMPRESSION: 1. Vasovagal syncope - ICD9: 780.2, ICD10: R55 (primary diagnosis) 2. POTS (postural orthostatic tachycardia syndrome) - ICD9: 427.89, ICD10: G90.A 3. Postural lightheadedness - ICD9: 780.4, ICD10: R42 4. Palpitations - ICD9: 785.1, ICD10: R00.2 PLAN AND RECOMMENDATIONS: I reviewed the results of the tilt with Shagufta and her mom and I explained both POTS and VVS I cautioned that POTS and VVS would not explain a frequency of TLOC of 10-20 times a week and so I recommend we start medical therapy but if these symptoms fail to improve then would refer to epilepsy for EMU admission, she does not describe seizure like activities and has orthostatic intolerance. I reviewed lifestyle management for POTS and am again putting my recommendations here so she has easy access to review (I had messaged her when we got the tilt) I also recommend we start propranolol 10mg tid and she will message me in a about three weeks to let me know if tolerating and helping and we will decide at that time if we increase it, we discussed possible use of ivabradine if propranolol alone not effective. I also recommend referral to cardiac rehab for an exercise prescription We discussed syncope and the more common potential causes. We discussed workup and management options. I recommended that they be self aware , meaning that they heed prodromal symptoms and when possible recognize the symptoms that can preceed a syncopal or near syncopal episode. We discussed techniques to minimize recurrence as well as prevent injury. We discussed postural response, to sit or preferably lie down immediately with onset of symptoms, not to try to walk it off . We discussed physical counter maneuvers, such as leg crossing, and contraction of abdomen, thigh, and gluteal muscles which in some can slow the progression of symptoms allow an individual to find a more safe position. We discussed the role of hydration and avoidance of low fluid volume. To be acutely aware of periods of increased fluid loss such when sweating or exertion in hot and humid weather, or during illness with poor intake and/or increased loss such as with diarrhea or vomiting. We discussed the cautious use of dietary sodium (should not use if significant hypertension). We discussed the recovery phase, including drinking water and not being to quick to stand or resume activities. We discussed never to drive, if symptoms are present. The management of POTS/Orthostatic intolerance (OI) requires significant lifestyle management. Pharmacologic therapy alone is ineffective and the role of medications is adjunctive to lifestyle to help mitigate persistent symptoms. Sleep disorders are very frequent with POTS/OI and can include both insomnia and hypersomnia. Sleep is very important not only for healing and recovery but also for regulation of the autonomic nervous system. If is very important to ensure adequate sleep. Good sleep habits are vitally important and failure to get appropriate sleep can contribute to ongoing symptoms of POTS/OI. Sleep requirements vary for each individual but most of us require about 8 hours of uninterrupted sleep. Use bed for sleep, avoid reading, watching TV or smart phone activities which can be disruptive to sleep. Avoid staying up late at night and trying to catch up on sleep during the day (unless you work nights which requires this). Sleep aids are not advised and should only be used with guidance from a sleep medicine specialist. It may be helpful to elevate the head of the bed using bed risers (4-6 inches height) placed under the bed frame at the head of the bed. The purpose of this is to increase effective circulating blood volume by creating a very slight orthostatic stress during sleep. Frequent small meals are advised this is to avoid shunting more blood to the stomach to digest larger meals. Increased dietary sodium. Eating salt rich foods or snacks are recommended, but avoid eating too much food of poor nutritional quality. I don't routinely recommend salt tablets as they can be upsetting to the stomach and absorption may be lower than expected. Check with your doctor as high salt diets are not recommended during , with hypertension or heart failure. I recommend drinking minimum of 3 liters of fluid a day and at least half of this should be water. Sports drinks should not replace the water portion as the sweetners or artificial sweetners may offset some of the benefit of the sodium and water content (use these for the non water part of your daily fluid intake). Compression garments can be helpful by reducing venous pooling. I recommend legging style (from ankle to low abdomen) as most of the venous pooling occurs in the abdomen, pelvis and upper thights. Knee high garments offer little benefit for this issue. I recommend either good quality athletic compression leggings or medical grade compression garments. I recommend 20-30 mmHg compression. Higher compression of 30-40mmHg may offer more compression but can be uncomfortable putting on and taking off, so would advise to start with a lower compression and if tolerating can increase. Physical counter manuevers may help to temporarily alleviate acute symptoms including syncope or near syncope. These including crossing the legs and squeezing the muscles of the buttocks, abdomen and thighs, holding and pulling arms apart with same muscle squeeze, or squeezing a ball by hand. Avoid standing still for prolonged periods, walking, swaying or pacing may lessen the effects of standing still. A dedicated and progressive exercise program is probably the most effective component of the treatment plan. POTS/OI patients are often deconditioned and markedly symptomatic and starting a new exercise program can increase symptoms of fatigue. I recommend guidance for starting a new program. The first month should focus on activities that are done while lying or sitting on the ground and should focus on isometric holds (such as planks or similar) can be augmented with use of stretchbands or machines. This can be augmented with cardio style exercises including recumbent bike, nu step and rowing machines. Walking can also be performed, although this introduces postural challenge, walking readily allows you to control both intensity and duration and can readily be adjusted based on symptoms. As activity tolerence improves can add more upright exercises. A referral for cardiac rehab can also help progress but requires dedication and commitment. The benefit from exercise is gradual but should be a cornerstone for any POTS/OI treatment plan. High intensity interval training is a poor choice for symptomatic POTS/OI and should be deferred until symptoms are reasonably well managed. Keep in mind there is a metabolic magallon to pay with POTS/OI, when you are very symptomatic over exerting yourself (this more often occurs with activities of daily life as opposed to exercise) you may experience malaise and excess fatigue that can last hours to days. It is important to pace yourself but also the need to constantly work to gradually improve your functional tolerance. I addressed questions and concerns. CONTACT INFORMATION: Emilee Funes DO As a national referral center for Syncope and related conditions, seeing patients from across the country, we cannot provide work, FMLA, disability or other forms, or cardiac clearance. Please contact the patient's primary care physician or clinical extractor machine operator for the documentation requested. We will provide the office notes from the patient's most recent visit if they have not already been received, and other tests or evaluations performed here can be made available upon request. documented in this encounter [facility] 08-21-2022 Note HNO ID: [id number] Author: Francesca Roger RN Service: ? Author Type: Registered Nurse Type: Progress Notes Filed: 08/21/2022 1:43 PM Note Text: UNIVERSAL PROTOCOL / SAFETY CHECKLIST Procedure to be performed: [facility]: TILT Sign in Communication: Completed Time Out: Team Confirms the Correct Patient, Correct Procedure, Correct Site and Site Marking, Correct Position (if applicable). Time: 12:25 STAFF: Elder Maldonado MD Affirmation of Time Out: YES Sign Out Discussion: Completed Orders placed 06/13/[address] Funes Allergies: Patient has no allergy information on record. Test done in consult with Dr. Funes Procedure Start Time: 12:25 Patient fasting for 4 hours: Yes Support stockings taken off for procedure: No Pain Assessment: patient states none Comfort Measures: room lights dimmed Pacemaker: No Baseline: BP 104/68 HR 76 Pre-Max Tilt : 70 degrees 17 min BP 93/55 HR 120 Max Tilt: 70 degrees 18 min BP 77/41 HR 112 ? IV Placement: Francesca Roger RN Note: Test was stopped early at the 18 min into 70 degree HUT due to decrease in blood pressure, patient symptoms, and patient request to stop test and resume supine positioning. See Final Report for Diagnosis. ? IV access removed by Carolann Sarmiento RN at 13:40. ? Staff involved in procedure: Francesca Roger RN ; Carolann Sarmiento RN Procedure Finish Time: 13:45 [facility] 08-21-2022 History of Present illness Narrative UNIVERSAL PROTOCOL / SAFETY CHECKLIST Procedure to be performed: [facility]: TILT Sign in Communication: Completed Time Out: Team Confirms the Correct Patient, Correct Procedure, Correct Site and Site Marking, Correct Position (if applicable). Time: 12:25 STAFF: Elder Maldonado MD Affirmation of Time Out: YES Sign Out Discussion: Completed Orders placed 06/13/[address] Funes Allergies: Patient has no allergy information on record. Test done in consult with Dr. Funes Procedure Start Time: 12:25 Patient fasting for 4 hours: Yes Support stockings taken off for procedure: No Pain Assessment: patient states none Comfort Measures: room lights dimmed Pacemaker: No Baseline: BP 104/68 HR 76 Pre-Max Tilt : 70 degrees 17 min BP 93/55 HR 120 Max Tilt: 70 degrees 18 min BP 77/41 HR 112 ? IV Placement: Francesca Roger RN Note: Test was stopped early at the 18 min into 70 degree HUT due to decrease in blood pressure, patient symptoms, and patient request to stop test and resume supine positioning. See Final Report for Diagnosis. ? IV access removed by Carolann Sarmiento RN at 13:40. ? Staff involved in procedure: Francesca Roger RN ; Carolann Sarmiento RN Procedure Finish Time: 13:45 documented in this encounter [facility] 08-08-2022 Note . MICRO - Microbiology PROCEDURE: Affirm Pathogens DNA Direct Probe [*1] SOURCE: Vaginal Fluid BODY SITE: Vaginal Wall COLLECTED DATE/TIME: 08/06/2022 23:10 EST RECEIVED DATE/TIME: 08/07/2022 14:58 EST START DATE/TIME: 08/07/2022 14:58 EST FREE TEXT SOURCE: FINAL REPORTS Final Report [] Verified Date/Time/Personnel: 08/08/2022 13:30 EST Gardnerella vaginalis DNA Probe Negative Janett species DNA Probe Negative Trichomonas vaginalis DNA Probe Negative Performing Locations *1: This test was performed at: [facility], [address] [place] [address], [id number] , [facility] ([place]) 08-07-2022 Hospital Discharge instructions Patient Education 08/07/2022 00:57:31 Vaginal Infection: Bacterial Vaginosis Vaginal Infection: Bacterial Vaginosis Both good and bad bacteria are present in a healthy vagina. Bacterial vaginosis (BV) occurs when these bacteria get out of balance. The numbers of good bacteria decrease. This allows the numbers of bad bacteria to increase and cause BV. In most cases, BV is not a serious problem. Causes of bacterial vaginosis The cause of BV is not clear. Douching may lead to it. Having sex with a new partner or more than 1 partner makes it more likely. Symptoms of bacterial vaginosis Symptoms of BV vary for each woman. Some women have few symptoms or none at all. If symptoms are present, they can include: Thin, milky white or kim or sometimes green discharge Unpleasant fishy odor Irritation, itching, and burning at opening of vagina which may indicate mixed vaginitis Burning or irritation with sex or urination which may indicate mixed vaginitis Diagnosing bacterial vaginosis Your healthcare provider will ask about your symptoms and health history. He or she will also do a pelvic exam. This is an exam of your vagina and cervix. A sample of vaginal fluid or discharge may be taken. This sample is checked for signs of BV. Treating bacterial vaginosis BV is often treated with antibiotics. They may be given in oral pill form or as a vaginal cream. To use these medicines: Be sure to take all of your medicine, even if your symptoms go away. If you re taking antibiotic pills, do not drink alcohol until you re finished with all of your medicine. If you re using vaginal cream, apply it as directed. Be aware that the cream may make condoms and diaphragms less effective. Call your healthcare provider if symptoms do not go away within 4 days of starting treatment. Also call if you have a reaction to the medicine. Why treatment matters Even if you have no symptoms or your symptoms are mild, BV should be treated. Untreated BV can lead to health problems such as: Increased risk of delivery if you re Increased risk of complications after surgery on the reproductive organs Possible increased risk of pelvic inflammatory disease (PID) [id number] [employer] [place] [address], [place] [address]. All rights reserved. This information is not intended as a substitute for professional medical care. Always follow your healthcare professional's instructions. 08/07/2022 00:57:31 Ovarian Cysts Ovarian Cysts A cyst is usually a fluid-filled sac, like a small water balloon. Cysts are almost always harmless, and many go away on their own. Usually they grow slowly. They can vary in size from as small as a pea to larger than a grapefruit. Many cause no symptoms at all. Often they are felt only during a pelvic exam. Ovarian cysts are usually not cancer. Functional cyst A functional cyst is the most common kind of cyst. It forms when a follicle does not release a mature egg or continues to grow after releasing the egg. Functional cysts usually occur on only one ovary at a time. They usually shrink on their own in 1 to 3 months. In rare cases, a cyst will burst (rupture), causing pain. Pain might also be caused by the twisting of an ovary that is enlarged because of the cyst growing on it. Dermoid cyst Sometimes cells that are present from will start to grow into different kinds of tissue such as skin, fat, hair, and teeth. This kind of cyst is called a dermoid cyst. Dermoid cysts can grow on one or both ovaries. Usually they cause no symptoms. But if they leak or the ovary becomes twisted, they can cause severe pain. Endometrioma Sometimes tissue similar to the lining of the uterus (endometrium) grows and becomes part of the ovary. This kind of cyst is often called a chocolate cyst because of its dark-brown color. These cysts can grow on one or both ovaries. They often cause pain, especially around menstruation or during sex. Benign cystadenoma If the capsule that surrounds the ovary grows, it can form a cystadenoma. These cysts can grow on one or both ovaries. Usually they cause no symptoms if they are small. But if they become large, they can press on organs near the ovaries, causing pain. They can also cause pain by stretching the ovarian capsule. A cyst that pushes on the bladder can cause frequent urination. Sometimes these cysts rupture and bleed. Malignant cysts These cysts can invade other tissues or spread to other parts of the body. [id number] [employer]. [address] [place] [address]. All rights reserved. This information is not intended as a substitute for professional medical care. Always follow your healthcare professional's instructions. Follow Up Care 08/06/2022 22:49:27 With:ZAIRE SOLANO Address: [address] [place] [address] [place] [address] [phone] Business (1) When:2-4 days Comments:Follow-up with your doctor, take ibuprofen, Tylenol for pain. Take Flagyl as prescribed, return if any worsening or concerning symptoms. [facility] 08-07-2022 Note ORIGINAL EXAMINATION: DOPPLER EVALUATION OF THE PELVIS 08/07/2022 12:37 am COMPARISON: None. HISTORY: ORDERING SYSTEM PROVIDED HISTORY: Reason for Exam: pelvic pain FINDINGS: Uterus is normal in size measuring 6.7 x 4.4 x 3.3 cm. Intrauterine contraceptive device is in satisfactory position. Endometrium is not thickened measuring 3 mm. There is no abnormal fluid in the endometrium. Myometrium has normal echogenicity. There is limited evaluation of the right ovary that measures 2.1 x 1.7 cm. The left ovary measures 3.1 x 2.4 x 2.1 cm. 2.0 hemorrhagic cyst of the left ovary. Normal blood flow is seen in the left ovary. There is no free fluid in the pelvis. IMPRESSION: Normal uterus with intrauterine contraceptive device in satisfactory position. 2 cm hemorrhagic cyst of the left ovary. Imaging follow-up is not required. Limited evaluation of right ovary with no sign of abnormality. Interpreted by: Cachorro Maza MD Preliminary Report By: Cachorro Maza MD Electronically signed By Cachorro Maza MD Dictated Date: 08/07/2022 12:42:25 AM Prelim Date: 08/07/2022 12:46:39 AM Sign Date: 08/07/2022 12:46:39 AM Ordering Provider: ANNE KIRBY [facility] [place] 08-07-2022 Note Discharge Instructions Thank you for allowing [facility] to assist you with your healthcare needs. The following is important discharge information regarding your hospital visit. Diagnosis from Today's Visit Bacterial vaginosis Hemorrhagic ovarian cyst What to Do Next Instructions from Your Care Team No qualifying data available. Post Acute Orders No qualifying data available. You Need to Schedule the Following Appointments Follow Up with ZAIRE SOLANO When Within 2-4 days Why: Follow-up with your doctor, take ibuprofen, Tylenol for pain. Take Flagyl as prescribed, return if any worsening or concerning symptoms. Where: [place] [address] [phone] Business (1) Allergies NKA Medications Please ask your primary doctor or pharmacist before taking any other medication not listed, including over the counter drugs, herbal medications, vitamins and or supplements as they may interact with your home medications. What How Much When Instructions Last Dose New metroNIDAZOLE (metroNIDAZOLE 500 mg oral tablet) 1 tab(s) by mouth Two (2) times a day Duration: 7 Days Printed Prescription Please take this list to your next doctor s visit. Bring all medications you take, including over the counter medications, herbals and other supplements with you to your doctor s visit. Patients and families are reminded to discard old lists and to update any records with all medication providers or retail pharmacies. Education Materials Vaginal Infection: Bacterial Vaginosis Both good and bad bacteria are present in a healthy vagina. Bacterial vaginosis (BV) occurs when these bacteria get out of balance. The numbers of good bacteria decrease. This allows the numbers of bad bacteria to increase and cause BV. In most cases, BV is not a serious problem. Causes of bacterial vaginosis The cause of BV is not clear. Douching may lead to it. Having sex with a new partner or more than 1 partner makes it more likely. Symptoms of bacterial vaginosis Symptoms of BV vary for each woman. Some women have few symptoms or none at all. If symptoms are present, they can include: Thin, milky white or kim or sometimes green discharge Unpleasant fishy odor Irritation, itching, and burning at opening of vagina which may indicate mixed vaginitis Burning or irritation with sex or urination which may indicate mixed vaginitis Diagnosing bacterial vaginosis Your healthcare provider will ask about your symptoms and health history. He or she will also do a pelvic exam. This is an exam of your vagina and cervix. A sample of vaginal fluid or discharge may be taken. This sample is checked for signs of BV. Treating bacterial vaginosis BV is often treated with antibiotics. They may be given in oral pill form or as a vaginal cream. To use these medicines: Be sure to take all of your medicine, even if your symptoms go away. If you re taking antibiotic pills, do not drink alcohol until you re finished with all of your medicine. If you re using vaginal cream, apply it as directed. Be aware that the cream may make condoms and diaphragms less effective. Call your healthcare provider if symptoms do not go away within 4 days of starting treatment. Also call if you have a reaction to the medicine. Why treatment matters Even if you have no symptoms or your symptoms are mild, BV should be treated. Untreated BV can lead to health problems such as: Increased risk of delivery if you re Increased risk of complications after surgery on the reproductive organs Possible increased risk of pelvic inflammatory disease (PID) [employer]. [address] [place] [address], [place] [address]. All rights reserved. This information is not intended as a substitute for professional medical care. Always follow your healthcare professional's instructions. Ovarian Cysts A cyst is usually a fluid-filled sac, like a small water balloon. Cysts are almost always harmless, and many go away on their own. Usually they grow slowly. They can vary in size from as small as a pea to larger than a grapefruit. Many cause no symptoms at all. Often they are felt only during a pelvic exam. Ovarian cysts are usually not cancer. Functional cyst A functional cyst is the most common kind of cyst. It forms when a follicle does not release a mature egg or continues to grow after releasing the egg. Functional cysts usually occur on only one ovary at a time. They usually shrink on their own in 1 to 3 months. In rare cases, a cyst will burst (rupture), causing pain. Pain might also be caused by the twisting of an ovary that is enlarged because of the cyst growing on it. Dermoid cyst Sometimes cells that are present from will start to grow into different kinds of tissue such as skin, fat, hair, and teeth. This kind of cyst is called a dermoid cyst. Dermoid cysts can grow on one or both ovaries. Usually they cause no symptoms. But if they leak or the ovary becomes twisted, they can cause severe pain. Endometrioma Sometimes tissue similar to the lining of the uterus (endometrium) grows and becomes part of the ovary. This kind of cyst is often called a chocolate cyst because of its dark-brown color. These cysts can grow on one or both ovaries. They often cause pain, especially around menstruation or during sex. Benign cystadenoma If the capsule that surrounds the ovary grows, it can form a cystadenoma. These cysts can grow on one or both ovaries. Usually they cause no symptoms if they are small. But if they become large, they can press on organs near the ovaries, causing pain. They can also cause pain by stretching the ovarian capsule. A cyst that pushes on the bladder can cause frequent urination. Sometimes these cysts rupture and bleed. Malignant cysts These cysts can invade other tissues or spread to other parts of the body. [employer]. [address] [place] [address], [place] [address]. All rights reserved. This information is not intended as a substitute for professional medical care. Always follow your healthcare professional's instructions. Additional Information VACCINATE! IT SAVES LIVES! Members of the community who have not yet received the COVID-19 vaccine and would like to receive it can visit one of [facility] vaccine clinics. There are many vaccine clinic locations within the [facility]. For locations and available times, please visit [email or web address]. It is important to note that some COVID mobile vaccine clinics are held outdoors and may be canceled in rainy or stormy conditions. To learn more about pediatric vaccinations (ages 5-11), we invite you to visit the [employer] [facility] webpage. [email or web address] [email or web address]-Freq dkdgzu-[email or web address]-[email or web address].[email or web address] To learn more about the COVID-19 vaccine, we invite you to visit the [employer] website for a list of frequently asked questions. [email or web address]/Patie eal-nza-Umggycet/xpqml-Zlvuuqj-N requently_[email or web address]-Questions.pdf [facility] Patient Portal Access Instructions: Stay connected with your healthcare team and access your personal medical information anytime with the [employer] Patient Portal. If you would like a full copy of your medical records please contact the [facility] Medical Records Department Sunday through Sunday between 8a.m. and 4:30p.m. Please follow the directions below to access the portal: 1.Access the email account you provided upon registration to the hospital.2.Look for an invitation email from [facility].3.Open the email and access the invitation link: Accept Invitation to [employer]4.Fill in the required joshi to create your account. Sign into www.[employer] with your username and password that you created in the above steps to stay up to date. You can then view a summary of results, a summary of your visits, and the ability to download your summaries to your computer or send the information securely to a physician. Remember that your healthcare information is confidential, so carefully consider who you will allow to register on the [employer] Patient Portal for access to your information. You can also access the [employer] Patient Portal on the kwiry saima. Simply click on Health Records under Health Data and then click on the Tumblr logo. HOW TO SAFELY DISPOSE OF PRESCRIPTION MEDICATIONS Please use one of the following methods to safely dispose of your unused medications. 1.Use a drug disposal kit: the drug disposal pouch allows you to safely discard your old and unused drugs. Ask your nurse to give you one when you are discharged.2.Visit a local take-back location: Many local pharmacies and police departments have programs that collect old and unwanted prescription drugs. Call your local pharmacy or go to http://DoubleVerify.[employer]1L7Dm6g to find one close to you.3.Make use of household items: Use cat litter or old coffee grounds to dispose medications if other options are not available. Mix your drugs with these household products, seal them in an airtight container and throw it into the garbage. Call [facility]: [phone] to be sure your drugs can be disposed of in this way. Some medicines may require a different approach.4.Never flush your medications down the toilet. IF YOU HAVE BEEN PRESCRIBED AN OPIOIDS FOR PAIN If you have been prescribed an opioid (such as hydrocodone, oxycodone or morphine), it is critical to understand the possible side effects and risks of opioid pain medications. Even when taken as directed, opioids can have several side effects including: Tolerance, meaning you might need to take more of a medication for the same pain relief. Nausea, vomiting and/or constipation. Sleepiness, dizziness, dry mouth, confusion, depression or itching. Physical dependence, meaning you have withdrawal symptoms when a medication is stopped ? this can develop within a few days. KNOW YOUR RESPONSIBILITIES It is important to know exactly how much and how often to take the opioid pain medications you are prescribed. Never take opioids in higher amounts or more often than prescribed. Do not combine opioids with alcohol or other drugs that cause drowsiness, such as benzodiazepines, also known as benzos, including diazepam and alprazolam, muscle relaxants or sleep aids. Never sell or share prescription opioids. This is illegal. Store opioids in a secure place and out of reach of others (including children, family, friends and visitors). The last page(s) of this document has been signed and retained as a CHART COPY Signatures Patient Education Materials Vaginal Infection: Bacterial Vaginosis Ovarian Cysts Medication Leaflets My discharge plan and instructions have been reviewed and explained to me and I,MURRAY SHAGUFTA understand my current condition and have read and understand these discharge instructions. I have received a written copy of the plan/instructions. If I have questions, I am aware that I should contact my doctor. Patient/Manager Center Signature: Date/Time: Relationship to Patient: Witness Name/Signature: Date/Time: [facility] 08-07-2022 Note ORIGINAL EXAMINATION: DOPPLER EVALUATION OF THE PELVIS 08/07/2022 12:37 am COMPARISON: None. HISTORY: ORDERING SYSTEM PROVIDED HISTORY: Reason for Exam: pelvic pain FINDINGS: Uterus is normal in size measuring 6.7 x 4.4 x 3.3 cm. Intrauterine contraceptive device is in satisfactory position. Endometrium is not thickened measuring 3 mm. There is no abnormal fluid in the endometrium. Myometrium has normal echogenicity. There is limited evaluation of the right ovary that measures 2.1 x 1.7 cm. The left ovary measures 3.1 x 2.4 x 2.1 cm. 2.0 hemorrhagic cyst of the left ovary. Normal blood flow is seen in the left ovary. There is no free fluid in the pelvis. IMPRESSION: Normal uterus with intrauterine contraceptive device in satisfactory position. 2 cm hemorrhagic cyst of the left ovary. Imaging follow-up is not required. Limited evaluation of right ovary with no sign of abnormality. Interpreted by: Cachorro Maza MD Preliminary Report By: Cachorro Maza MD Electronically signed By Cachorro Maza MD Dictated Date: 08/07/2022 12:42:25 AM Prelim Date: 08/07/2022 12:46:39 AM Sign Date: 08/07/2022 12:46:39 AM Ordering Provider: ANNE KIRBY [facility] 08-07-2022 Note ORIGINAL EXAMINATION: DOPPLER EVALUATION OF THE PELVIS 08/07/2022 12:37 am COMPARISON: None. HISTORY: ORDERING SYSTEM PROVIDED HISTORY: Reason for Exam: pelvic pain FINDINGS: Uterus is normal in size measuring 6.7 x 4.4 x 3.3 cm. Intrauterine contraceptive device is in satisfactory position. Endometrium is not thickened measuring 3 mm. There is no abnormal fluid in the endometrium. Myometrium has normal echogenicity. There is limited evaluation of the right ovary that measures 2.1 x 1.7 cm. The left ovary measures 3.1 x 2.4 x 2.1 cm. 2.0 hemorrhagic cyst of the left ovary. Normal blood flow is seen in the left ovary. There is no free fluid in the pelvis. IMPRESSION: Normal uterus with intrauterine contraceptive device in satisfactory position. 2 cm hemorrhagic cyst of the left ovary. Imaging follow-up is not required. Limited evaluation of right ovary with no sign of abnormality. Interpreted by: Cachorro Maza MD Preliminary Report By: Cachorro Maza MD Electronically signed By Cachorro Maza MD Dictated Date: 08/07/2022 12:42:25 AM Prelim Date: 08/07/2022 12:46:39 AM Sign Date: 08/07/2022 12:46:39 AM Ordering Provider: ANNE KIRBY [facility] 08-06-2022 Evaluation + Plan note Diagnostic Tests PendingChlamydia trachomatis PCR 08/06/22N. gonorrhoeae PCR 08/06/22Affirm Pathogens DNA Direct Probe 08/06/22 [facility] 06-13-2022 Note Education (CARDMN) SHAGUFTA MURRAY ([id number]) 1 F Date Time Provider Department 06/13/22 11:45 AM ARRHYTHMIA MONITORING LAB CARDMN Reason for Visit: Event [921] Cmt: Zio patch Primary Visit Diagnosis:Syncope, unspecified syncope type [R55] During your visit today, we recorded the following information about you: Allergies As of Date: 06/13/2022 (No Known Allergies) Date Reviewed: 06/13/2022 Reviewed by: Mariya Shoemaker RN - Fully Assessed Prescriptions as of 06/13/2022 - levonorgestrel (NAOMY) 14 mcg/24 hrs (3 yrs) 13.5 mg IUD IUD Levonorgestrel (Naomy) 14 mcg/24 hrs (3 yrs) 13.5 mg intrauterine device Active 1 DEVICE INTRA-UTER ONCE January 26, 2020 11:00pm as a single dose Facility-Administered Medications as of 06/13/2022 - perflutren lipid microspheres 1.3 mL in NaCl (PF) 0.9% 10 mL injection (DEFINITY) - sodium chloride 0.9 % (flush) 10 mL (BD POSIFLUSH) Encounter Status:Closed by ORLIN ROCKWELL on 06/13/22 [facility] 06-13-2022 Note HNO ID: [id number] Author: Orlin Edouard Service: ? Author Type: ? Type: Progress Notes Filed: 06/13/2022 11:43 AM Note Text: EVENT MONITOR DISPOSABLE PATCH INSTRUCTIONS Patient Name: Shagufta Murray [facility] Number: [id number] Skin prepped and cleansed with alcohol Patch secured to prepped area Monitor Activated Serial #:[id number] Patient Instructed: Prescribed order timeframe Bathing guidelines Usage of event button and diary documentation Return of monitor at the end of prescribed order Call with problems [phone] or [phone]. [phone] Patient expresses a good understanding of instructions Orlin Edouard [facility] 06-13-2022 Note HNO ID: [id number] Author: Emilee Funes, DO Service: ? Author Type: Physician Type: Progress Notes Filed: 06/13/2022 11:17 AM Note Text: [facility] [place] [facility] Elena Department of Cardiovascular Medicine SECTION OF CARDIAC PACING and ELECTROPHYSIOLOGY OUTPATIENT VISIT DATE June 13, 2022 OUTPATIENT VISIT TYPE NEW PRIMARY CARE PHYSICIAN: To use this Smartlink, specify the provider ID whose address you want to display, e.g., .PROVADDR[1 (where 1 is the provider ID). REFERRING PHYSICIAN: Ralph Rivera MD ([facility]) [address] [facility] [id number] CHIEF COMPLAINT: syncope HISTORY OF PRESENT ILLNESS: Ms. Murray is a 17 year old female who presents today for a second opinion regarding syncope. She has been evaluated by Dr. Rivera in [place]. I did not receive records to review prior to her visit but she was added to my schedule only yesterday. She had been seen by Dr. Rivera who recommended she come here and she had seen a neurologist as well, had a normal EEG but did not have episode at that time. The she reports the episodes started a year ago. She was observing a surgery which she had done many prior without episode,she relates she stood from sitting, felt lightheaded and passed out for a couple seconds. The next episode occurred a couple days later. She feels dizzy everytime she stands but she does not pass out everytime. She reports can occur a couple times a day to a couple times a week can be up to 10-12 times a week. Usually occur when going from seated to standing, can occur if standing for a long time, has occurred while walking and occasionally while sitting, but never while lying down. She relates having had a fluttery feeling in her chest. She relates she has always had a fast HR. She normally has palpitations prior to passing out but can occasionally have without passing out. Usually last a couple seconds to 2 minutes. She relates that if she turns her head suddenly she feels lightheaded and ascribes this to vertigo. She relates sometimes has palpitations, normally occurs at rest. She has not been active since she started fainting. She did have a tilt table study performed on 01-10-2022. She was noted, status post nitroglycerin sublingual challenge, to have findings compatible with vasovagal/neurocardiogenic (combination of cardioinhibitory and vasodilatory) symptoms although she did not have syncope. Summary Protocol: 70 Degree Upright Tilt Pre Test Resting HR: 74 Pre Test Resting BP: 125/62 Minimum Test HR: 49 Maximum Test HR: 108 Minimum Test BP: 58/0 Maximum Test BP: 113/71 Reason for Test Termination: Reached Maximum Test Time Physician Tilt Table Report Patient's Physicians Primary Care Physician: Z[facility] Assistant: Ralph Rivera Indications/Diagnosis: Syncope Procedure Comments: The patient presented to the tilt table laboratory and was awake and alert and warm and dry. The baseline heart rate was 74 bpm with a baseline blood pressure 125/62 mmHg. The cardiac rhythm was normal sinus rhythm. The patient was placed in the 70 degree upright tilt table position for approximately 20 minutes. During that time the patient remained alert and oriented and warm and dry. The minimal heart rate was 83 bpm with a minimal blood pressure of 97/64 mmHg. The cardiac rhythm remained sinus rhythm. The patient complained of feeling dizzy and seeing black spots . The patient did not lose consciousness. The patient was returned to the supine position and administered nitroglycerin sublingual 0.4 mg x 1. The patient returned to the 70 degree upright tilt table position for approximately 7 minutes. During that time the patient was reported as being alert and oriented and appearing pale and clammy. The minimal heart rate appeared to be 49 bpm with a blood pressure reported as unable to be obtained followed by a manual blood pressure of 58/0 mmHg. The cardiac rhythm remained sinus rhythm. During this time the patient was reported as feeling dizzy/hot, nauseated, cannot see , and being diaphoretic. The patient was not reported as losing consciousness. The patient was returned to the supine position. The patient was monitored in the supine position where she remained alert and oriented and subsequently her color was reported as pink and she was warm and dry. Her concluding heart rate was 75 bpm with a concluding blood pressure 118/79 mmHg. Her cardiac rhythm remained sinus rhythm with a rare PAC. The patient was reported as tolerating oral intake. She was subsequently released from the tilt table laboratory. Summary: 70 degree upright tilt table study post nitroglycerin sublingual challenge demonstrating findings suggestive of vasovagal/neurocardiogenic (combination of cardioinhibitory and vasodilatory) symptoms although not (more content not included)... [facility] 06-13-2022 Note HNO ID: [id number] Author: Emilee Funes, DO Service: ? Author Type: Physician Type: Procedures Filed: 07/06/2022 3:22 PM Note Text: Patient Name: Shagufta Murray : 2005 Ordering Provider: Emilee Funes Indication: R55 Syncope and collapse Type of Monitor: Extended Monitoring-Zio Patch Enrollment Dates: 06/13/2022-06/27/2022 Predominant rhythm is sinus. Average HR 95 bpm. Rare PAC and PVC Emilee Funes DO [facility] 06-13-2022 History of Present illness Narrative EVENT MONITOR DISPOSABLE PATCH INSTRUCTIONS Patient Name: Shagufta Murray Clinic Number: [id number] Skin prepped and cleansed with alcohol Patch secured to prepped area Monitor Activated Serial #:[id number] Patient Instructed: Prescribed order timeframe Bathing guidelines Usage of event button and diary documentation Return of monitor at the end of prescribed order Call with problems [phone] or [phone]. [phone] Patient expresses a good understanding of instructions [employer] documented in this encounter [facility] 06-13-2022 History of Present illness Narrative Images from the original note were not included. [facility] [place] Vaib[facility] Elena Department of Cardiovascular Medicine SECTION OF CARDIAC PACING and ELECTROPHYSIOLOGY OUTPATIENT VISIT DATE June 13, 2022 OUTPATIENT VISIT TYPE NEW PRIMARY CARE PHYSICIAN: To use this Smartlink, specify the provider ID whose address you want to display, e.g., .PROVADDR[1 (where 1 is the provider ID). REFERRING PHYSICIAN: Ralph Rivera MD ([facility]) [address] [phone] CHIEF COMPLAINT: syncope HISTORY OF PRESENT ILLNESS: Ms. Murray is a 17 year old female who presents today for a second opinion regarding syncope. She has been evaluated by Dr. Rivera in [place]. I did not receive records to review prior to her visit but she was added to my schedule only yesterday. She had been seen by Dr. Rivera who recommended she come here and she had seen a neurologist as well, had a normal EEG but did not have episode at that time. The she reports the episodes started a year ago. She was observing a surgery which she had done many prior without episode,she relates she stood from sitting, felt lightheaded and passed out for a couple seconds. The next episode occurred a couple days later. She feels dizzy everytime she stands but she does not pass out everytime. She reports can occur a couple times a day to a couple times a week can be up to 10-12 times a week. Usually occur when going from seated to standing, can occur if standing for a long time, has occurred while walking and occasionally while sitting, but never while lying down. She relates having had a fluttery feeling in her chest. She relates she has always had a fast HR. She normally has palpitations prior to passing out but can occasionally have without passing out. Usually last a couple seconds to 2 minutes. She relates that if she turns her head suddenly she feels lightheaded and ascribes this to vertigo. She relates sometimes has palpitations, normally occurs at rest. She has not been active since she started fainting. She did have a tilt table study performed on 01-10-2022. She was noted, status post nitroglycerin sublingual challenge, to have findings compatible with vasovagal/neurocardiogenic (combination of cardioinhibitory and vasodilatory) symptoms although she did not have syncope. Summary Protocol: 70 Degree Upright Tilt Pre Test Resting HR: 74 Pre Test Resting BP: 125/62 Minimum Test HR: 49 Maximum Test HR: 108 Minimum Test BP: 58/0 Maximum Test BP: 113/71 Reason for Test Termination: Reached Maximum Test Time Physician Tilt Table Report Patient's Physicians Primary Care Physician: Zaire Solano Health Care Assistant: Ralph Rivera Indications/Diagnosis: Syncope Procedure Comments: The patient presented to the tilt table laboratory and was awake and alert and warm and dry. The baseline heart rate was 74 bpm with a baseline blood pressure 125/62 mmHg. The cardiac rhythm was normal sinus rhythm. The patient was placed in the 70 degree upright tilt table position for approximately 20 minutes. During that time the patient remained alert and oriented and warm and dry. The minimal heart rate was 83 bpm with a minimal blood pressure of 97/64 mmHg. The cardiac rhythm remained sinus rhythm. The patient complained of feeling dizzy and seeing black spots . The patient did not lose consciousness. The patient was returned to the supine position and administered nitroglycerin sublingual 0.4 mg x 1. The patient returned to the 70 degree upright tilt table position for approximately 7 minutes. During that time the patient was reported as being alert and oriented and appearing pale and clammy. The minimal heart rate appeared to be 49 bpm with a blood pressure reported as unable to be obtained followed by a manual blood pressure of 58/0 mmHg. The cardiac rhythm remained sinus rhythm. During this time the patient was reported as feeling dizzy/hot, nauseated, cannot see , and being diaphoretic. The patient was not reported as losing consciousness. The patient was returned to the supine position. The patient was monitored in the supine position where she remained alert and oriented and subsequently her color was reported as pink and she was warm and dry. Her concluding heart rate was 75 bpm with a concluding blood pressure 118/79 mmHg. Her cardiac rhythm remained sinus rhythm with a rare PAC. The patient was reported as tolerating oral intake. She was subsequently released from the tilt table laboratory. Summary: 70 degree upright tilt table study post nitroglycerin sublingual challenge demonstrating findings suggestive of vasovagal/neurocardiogenic (combination of cardioinhibitory and vasodilatory) symptoms although not reproducing syncope during this evaluation. Nursing Intake: Symptoms began in April 2021. She has 10-12 syncopal episodes a week with a prodrome of lightheadedness, shortness of breath, palpitations, nausea, diaphoresis, visual changes, and muffled hearing. These usually occur with position changes but have also occurred at rest twice). Prolonged standing can also trigger symptoms as can quickly turning her head. She is out for a few seconds, at most a minute. She reports being disoriented and confused when first coming to but she knows where she is. These make her very tired. She has noticed numbness, tingling, and weakness in her extremities when she comes to as well. She denies orthopnea, PND, cough or edema. She drinks at least 3 cups of water a day. She eats a normal sodium diet and has started lightly salting her food. She wears knee high compression stockings. She tries to exercise 3 days a week for 45 minutes. She has never worn a heart monitor or had an ultrasound of her heart. She is lightheaded with most position changes. She has palpitations outside of her fainting and they are occasionally painful. They last a few minutes and are her most bothersome symptom. She had an EEG prior to her tilt table test. There was no seizure activity. She did not have an episode or symptoms during. She has never been to the EMU. She has also been experiencing fatigue since these symptoms started, she wakes up feeling tired. PAST CARDIAC HISTORY: None PAST MEDICAL HISTORY Diagnosis Date / JAUND NOS INFANT NEC WTNOS 5 weeks early PAST SURGICAL HISTORY Procedure Laterality Date NONE SOCIAL HISTORY FAMILY HISTORY Problem Relation Age of Onset other (negative family history [Other]) Other ALLERGIES: ALLERGIES No Known Allergies MEDICATIONS: No prescriptions on file. REVIEW OF SYSTEMS: General, constitutional: Weight loss or gain- No, Fever or chills-No, Weakness-No, Trouble sleeping-No. Head, Eyes, Ears, Mouth: Headache, head injury-No, Glasses or contact lenses-y, Pain-No, Impaired vision-No, Decreased hearing-No, Ringing in ears-No, Nose bleeds-No, Dental difficulties-No, Bleeding gums-No, Dentures-No. Neck: Swelling-No, Pain-No, Stiffness-No. Respiratory: Cough-No, Spitting up blood-No, Shortness of breath-No, Wheezing or asthma-No. Musculoskeletal: Muscle or joint pain or stiffness-No, Joint swelling-No. Gastrointestinal: Difficulty swallowing-No, Heartburn-No, Change in bowel habits-No, Blood in stool, Dark black stools-No. Neurological/Psychiatric: Weakness, paralysis-No, Numbness-No, Tingling-No, Tremor-No, Nervousness or anxiety-No, Depressed mood-No, Memory loss-No. Skin: Rash-No, Itching-No. Hematological: Easy bruising-No, Easy bleeding-No. Endocrine: Heat or cold intolerance-No, Excessive sweating-No, Frequent urination-No, Frequent thirst-No. PHYSICAL EXAMINATION: There were no vitals taken for this visit. BP w/Orthostatic Vitals Date and Time Orthostatic BP Orthostatic Pulse BP Pulse BP Position BP Site BP Cuff Size 06/13/22 1001 122/88 109 -- -- Standing -- -- 06/13/22 1000 117/83 99 -- -- Supine -- -- General: Well appearing, in no acute distress. Skin: No clubbing, no cyanosis. Eyes: Extra ocular movements intact Neck: No jugular venous distention, no carotid bruits, carotids have a normal upstroke, no palpable thyromegaly. Lungs: Clear to auscultation bilaterally, no wheezing or rhonchi. Heart: Regular rhythm, PMI not displaced, S1, S2 normal, no S3, no S4, no heaves, no rub and no murmur. Abdomen: Soft, nontender, bowel sounds normal, no palpable organomegaly, no bruits. Extremities: No peripheral edema . Grade 2/4 distal pulses bilaterally. Neuro: Oriented to person, place and time, alert, cooperative, gait coordinated. CARDIOVASCULAR MEDICINE TESTING: Electrocardiogram: sinus 95 bpm I have personally reviewed the Electrocardiogram. Assessment IMPRESSION: 1. Syncope, unspecified syncope type - ICD9: 780.2, ICD10: R55 (primary diagnosis) 2. Palpitations - ICD9: 785.1, ICD10: R00.2 PLAN AND RECOMMENDATIONS: We discussed syncope and the more common potential causes. We discussed workup and management options. I recommended that they be self aware , meaning that they heed prodromal symptoms and when possible recognize the symptoms that can preceed a syncopal or near syncopal episode. We discussed techniques to minimize recurrence as well as prevent injury. We discussed postural response, to sit or preferably lie down immediately with onset of symptoms, not to try to walk it off . We discussed physical counter maneuvers, such as leg crossing, and contraction of abdomen, thigh, and gluteal muscles which in some can slow the progression of symptoms allow an individual to find a more safe position. We discussed the role of hydration and avoidance of low fluid volume. To be acutely aware of periods of increased fluid loss such when sweating or exertion in hot and humid weather, or during illness with poor intake and/or increased loss such as with diarrhea or vomiting. For the recovery phase don't be too quick to stand or resume activities and drink a large glass of cool water prior to standing as can transiently raise BP. Do not drive if symptoms present as poses risk to you and others. I recommend we repeat her tilt with an active stand test. The response to NTG is a non specific finding, my concern is the drop in BP prior which is borderline for a hypotensive response. I cannot say with certainty. The active stand is to assess for instantaneous [place] which can be missed on a tilt. I also recommend an event monitor to assess her palpitations but also as her episodes are frequent we can likely see what her HRs are doing at that time. I also recommend an echocardiogram which she can have done locally to ensure no evidence of structural heart disease that could be causing symptoms. I discussed that the frequency of her symptoms are not consistent with POTS or VVS and if this testing is normal would then refer to epilepsy for an EMU admission to assess for PNES. I addressed their questions and we will follow up after her testing. CONTACT INFORMATION: Emilee Funes DO As a national referral center for Syncope and related conditions, seeing patients from across the country, we cannot provide work, FMLA, disability or other forms, or cardiac clearance. Please contact the patient's primary care physician or clinical extractor machine operator for the documentation requested. We will provide the office notes from the patient's most recent visit if they have not already been received, and other tests or evaluations performed here can be made available upon request. documented in this encounter [facility] 06-09-2022 Miscellaneous Notes Patient: Shagufta Murray Date of : 2005 Patient phone number: [phone] Referring Provider for the encounter: Dr Ralph Rivera Requesting Provider: Cardiology, Dr Elmo Funes Reason for requesting visit (RFV/signs and symptoms/diagnosis): Palpitations, Syncope and collapse Person calling: caregiver: BOO Return call to: self Medical Records/Insurance Card scanned into [employer]: Yes Comments: Additional documents available through [employer]. documented in this encounter [facility] Syncope and collapse- Primary [facility] Diagnosis Syncope, unspecified syncope type- Primary Palpitations [facility]* Diagnosis Syncope, unspecified syncope type- Primary Palpitations documented in this encounter [facility]* Diagnosis Syncope, unspecified syncope type- Primary documented in this encounter [facility] note* Diagnosis Syncope, unspecified syncope type- Primary documented in this encounter [facility] note* Diagnosis POTS (postural orthostatic tachycardia syndrome)- Primary Tachycardia, unspecified Vasovagal syncope Syncope and collapse Postural lightheadedness Dizziness and giddiness Palpitations documented in this encounter [facility] note* Diagnosis POTS (postural orthostatic tachycardia syndrome)- Primary Tachycardia, unspecified Exercise counseling Vasovagal syncope Syncope and collapse Palpitations Syncope, unspecified syncope type EDWARDS (dyspnea on exertion) Other dyspnea and respiratory abnormality Chest pain, unspecified type Fatigue, unspecified type Lightheadedness Dizziness and giddiness Need for home exercise program Difficulty managing exercise regime documented in this encounter [facility] note* Diagnosis POTS (postural orthostatic tachycardia syndrome)- Primary Tachycardia, unspecified Vasovagal syncope Syncope and collapse Palpitations EDWARDS (dyspnea on exertion) Other dyspnea and respiratory abnormality Chest pain, unspecified type Fatigue, unspecified type Lightheadedness Dizziness and giddiness Activity intolerance Other general symptoms documented in this encounter [facility] course Narrative No data available for this section [facility] Reason for referral (narrative)* Outpatient Procedure (Routine) - Authorized Specialty Diagnoses / Procedures Referred By Arleen lewis Referred To Contact [facility] [place] Diagnoses Syncope and collapse Procedures ECG COMPLETE ECG ROUTINE ECG W/LEAST 12 LDS W/I&R Emilee Funes DO [address] [place] [address] Formerly Named [facility] [place] [address] [place] [address] Referral ID Status Reason Start Date Expiration Date Visits Requested Visits Authorized [id number] Authorized Auto-Generat ed Referral 2 06/12/2023 1 1 DY [facility] for referral (narrative)* Outpatient Procedure (Routine) - Pending Review Specialty Diagnoses / Procedures Referred By Arleen lewis Referred To Contact [facility] [place] Diagnoses Syncope, unspecified syncope type Procedures ECHO ECHO TTHRC R-T 2D W/WOM-MODE COMPL SPEC&COLR D Emilee Funes DO [address] [place] [address] [facility] [address] [place] [id number] Referral ID Status Reason Start Date Expiration Date Visits Requested Visits Authorized [id number] Pending Review Auto-Generat ed Referral 2 06/13/2023 1 1 [facility] for referral (narrative)* Outpatient Procedure (Routine) - Authorized Specialty Diagnoses / Procedures Referred By Contac t Referred To Contact [facility] [place] Diagnoses Syncope, unspecified syncope type Palpitations Procedures ECG COMPLETE ECG ROUTINE ECG W/LEAST 12 LDS W/I&R Emilee Funes DO [address] [place] [id number] [place] [id number] Referral ID Status Reason Start Date Expiration Date Visits Requested Visits Authorized [id number] Authorized Auto-Generat ed Referral 2 06/13/2023 1 1 [facility] for referral (narrative)* Outpatient Procedure (Routine) - Pending Review Specialty Diagnoses / Procedures Referred By Contac t Referred To Contact [facility] Diagnoses POTS (postural orthostatic tachycardia syndrome) Vasovagal syncope Procedures ECG COMPLETE ECG ROUTINE ECG W/LEAST 12 LDS W/I&R Emilee Funes, DO [address] [place] [address] [facility] [address] [place] [id number] Referral ID Status Reason Start Date Expiration Date Visits Requested Visits Authorized [id number] Pending Review Auto-Generat ed Referral 3 05/31/2024 1 1 * Transition of Care (Routine) - Ref Not Required Specialty Diagnoses / Procedures Referred By Contac t Referred To Contact Procedures CARDIOVASCULAR MEDICINE OP FOLLOW UP APPT ORDER Emilee Funes DO [address] [place] [address] Referral ID Status Reason Start Date Expiration Date Visits Requested Visits Authorized [id number] Ref Not Required PCP Requested Referral 4 08/30/2024 1 1 DY [facility] note* Ray, ROB Smith: PERFORM Event Display: Patient Summary Documents Authored Date: [id number] [facility] Summary Purpose Family History No Family History Records FoundNo Family History Records FoundNo Family History Records FoundNo Family History Records FoundNo Family History Records Found Advance Directives No Advanced Directives Records FoundNo Advanced Directives Records FoundNo Advanced Directives Records FoundNo Advanced Directives Records FoundNo Advanced Directives Records Found Additional Source Comments INFORMATION SOURCE (unrecogn ized section and content) DATE CREATED AUTHOR AUTHOR'S ORGANIZ ATION 05/20/2022 [facility] DATE CREATED AUTHOR AUTHOR'S ORGANIZ ATION 09/18/2022 [facility] DATE CREATED AUTHOR AUTHOR'S ORGANIZ ATION 02/08/2023 [facility] ([place] DATE CREATED AUTHOR AUTHOR'S ORGANIZ ATION 06/03/2023 [facility] Source Comments (unrecognize d section and content) In the event this informatio n is protected by the Federal Confidentiality of Alcohol and Drug Abuse Patient Records regulations: The Federal rules restrict any use of the information to criminally investigate or prosecute any alcohol or drug abuse patient.[facility] event this information is protected by the Federal Confidentiality of Alcohol and Drug Abuse Patient Records regulations: The Federal rules restrict any use of the information to criminally investigate or prosecute any alcohol or drug abuse patient.[facility] the event this information is protected by the Federal Confidentiality of Alcohol and Drug Abuse Patient Records regulations: The Federal rules restrict any use of the information to criminally investigate or prosecute any alcohol or drug abuse patient.[facility] the event this information is protected by the Federal Confidentiality of Alcohol and Drug Abuse Patient Records regulations: The Federal rules restrict any use of the information to criminally investigate or prosecute any alcohol or drug abuse patient.[facility] the event this information is protected by the Federal Confidentiality of Alcohol and Drug Abuse Patient Records regulations: The Federal rules restrict any use of the information to criminally investigate or prosecute any alcohol or drug abuse patient.[facility] the event this information is protected by the Federal Confidentiality of Alcohol and Drug Abuse Patient Records regulations: The Federal rules restrict any use of the information to criminally investigate or prosecute any alcohol or drug abuse patient.[facility] the event this information is protected by the Federal Confidentiality of Alcohol and Drug Abuse Patient Records regulations: The Federal rules restrict any use of the information to criminally investigate or prosecute any alcohol or drug abuse patient.[facility] the event this information is protected by the Federal Confidentiality of Alcohol and Drug Abuse Patient Records regulations: The Federal rules restrict any use of the information to criminally investigate or prosecute any alcohol or drug abuse patient.[facility] the event this information is protected by the Federal Confidentiality of Alcohol and Drug Abuse Patient Records regulations: The Federal rules restrict any use of the information to criminally investigate or prosecute any alcohol or drug abuse patient.[facility] the event this information is protected by the Federal Confidentiality of Alcohol and Drug Abuse Patient Records regulations: The Federal rules restrict any use of the information to criminally investigate or prosecute any alcohol or drug abuse patient.[facility] the event this information is protected by the Federal Confidentiality of Alcohol and Drug Abuse Patient Records regulations: The Federal rules restrict any use of the information to criminally investigate or prosecute any alcohol or drug abuse patient.[facility] the event this information is protected by the Federal Confidentiality of Alcohol and Drug Abuse Patient Records regulations: The Federal rules restrict any use of the information to criminally investigate or prosecute any alcohol or drug abuse patient.[facility] the event this information is protected by the Federal Confidentiality of Alcohol and Drug Abuse Patient Records regulations: The Federal rules restrict any use of the information to criminally investigate or prosecute any alcohol or drug abuse patient.[facility] Reason for Visit (unrecogniz ed section and content) Reason Comments External Referrals/resources Reason Comments Event Zio patch Reason Comments Cardiac Rehab Reason Comments Exercise Prescription POTS Reason Onset Date Comments Refill Request 01/10/2023 Reason Comments Syncope Care Teams (unrecognized sec tion and content) Lamp Cleaner Relationship Specialty Start Date End Date [place] [address] Referring Cardiology 06/09/22 Lamp Cleaner Relationship Specialty Start Date End Date Zaire Solano MD [address] [facility] [address] [place] [address] PCP - General Internal Medicine 06/13/22 [place] [address] Referring Cardiology 06/09/22 Lamp Cleaner Relationship Specialty Start Date End Date Zaire Solano MD [address] [facility] [address] [place] [address] PCP - General Internal Medicine 06/13/22 [place] [address] Referring Cardiology 06/09/22 Lamp Cleaner Relationship Specialty Start Date End Date Zaire Solano MD [address] [facility] [address] [place] [address] PCP - General Internal Medicine 06/13/22 [place] [address] Referring Cardiology 06/09/22 Lamp Cleaner Relationship Specialty Start Date End Date Zaire Solano MD [address] [address] PCP - General Internal Medicine 06/13/[address] [facility] [place] [address] Referring Cardiology 06/09/22 Lamp Cleaner Relationship Specialty Start Date End Date Zaire Solano MD [address] [facility] [address] [place] [address] PCP - General Internal Medicine 06/13/[address] [facility] [address] Referring Cardiology 06/09/22 Emilee Funes, DO [address] [place] [address] Primary Staff Physician Cardiology 08/25/22 Lamp Cleaner Relationship Specialty Start Date End Date Zaire Solano MD [address] [address] PCP - General Internal Medicine 06/13/22 Ralph Rivera [facility] Physiciansdr[facility] [place] [address] Referring Cardiology 06/09/22 Emilee Funes, [address] [place] [address] Primary Staff Physician Cardiology 08/25/22 Lamp Cleaner Relationship Specialty Start Date End Date Zaire Solano MD [address] [facility] [address] [place] [address] PCP - General Internal Medicine 06/13/22 Ralph Rivera [address] [facility] [place] [address] Referring Cardiology 06/09/22 Emilee Funes DO [address] [place] [address] Primary Staff Physician Cardiology 08/25/22 Lamp Cleaner Relationship Specialty Start Date End Date Zaire Solano MD [address] [facility] [address] [place] [address] PCP - General Internal Medicine 06/13/22 Ralph Rivera [address] [facility] [place] [address] Referring Cardiology 06/09/22 Emilee Funes DO [address] [place] [address] Primary Staff Physician Cardiology 08/25/22 Lamp Cleaner Relationship Specialty Start Date End Date Zaire Solano MD [address] [facility] [address] [place] [address] PCP - General Internal Medicine 06/13/22 Ralph Rivera MD [address] [facility] [place] [id number] Referring Cardiology 06/09/22 Emilee Funes DO [address] [place] [address] Primary Staff Physician Cardiology 08/25/22 Care Team (unrecognized sect ion and content) Care Team Personnel Name: ZAIRE SOLANO MD Member Role: Primary Care Physician Address: Address: [address] [place] [address] [place] [id number] REC[facility]DS PERTAINING TO PATIENTS WHO ARE OR HAVE BEEN ENROLLED IN A CHEMICAL DEPENDENCY/SUBSTANCEABUSE PROGRAM, SOME INFORMATION MAY BE OMITTED. This clinical summary was aggregated from multiple sources. Caution should be exercised in using it in the provision of clinical care. This summary normalizes information from multiple sources, and as a consequence, information in this document may materially change the coding, format and clinical context of patient data. In addition, data may be omitted in some cases. CLINICAL DECISIONS SHOULD BE BASED ON THE PRIMARY CLINICAL RECORDS. [facility] [employer] provides no warranty or guarantee of the accuracy or completeness of information in this document.
[2023-09-10 09:25] VITALS: BP 97/59; PULSE 45; RESP 16; TEMP 36.7; O2SAT 100
== END 2023-09-10 09:28 | disposition home or self-care (01) ==
PROVIDERS: Emergency Provider Emergency Medicine; PCP Internal Medicine; Visit Provider Emergency Medicine
DX: R11.0 Nausea (principal); R51.9 Headache, unspecified; R06.09 Other forms of dyspnea; T58.91XA Toxic effect of carbon monoxide from unspecified source, accidental (unintentional), initial encounter
CPT/HCPCS: 82375; 99282

== ENCOUNTER → 2024-05-28 | Outpatient (CLI) | payer OTHER, SELFPAY ==
[2024-05-28 15:08] LABS: Absolute Lymphocyte Count 1.45 X10^3/uL (0.83-4.51); Absolute Neutrophil Count 2.6 X10^3/uL (2.0-7.7); Basophil# 0.03 X10^3/uL; Basophil% 0.6 % (0-1); Eosinophil# 0.14 X10^3/uL; Hematocrit 39.6 % (37-47); Hemoglobin 13.2 g/dL (12.0-15.0); Lymphocyte # 1.45 X10^3/ul (0.83-4.51); Lymphocyte % 30.8 % (19-41); Mean Corp Hgb Conc 33.3 g/dL (32-36); Mean Corpuscular Hgb 29.3 pg (27.0-32.0); Mean Corpuscular Volume 87.8 fL (81-99); Mean Platelet Vol. 11.2 fl (6.2-12.0); Monocyte# 0.46 X10^3/uL; Monocyte% 9.8 % (0-10); NRBC Flagged by Analyzer 0 % (0-5); Neutrophil # 2.62 X10^3/uL (2.7-7.7); Neutrophil % 55.6 % (47-70); Platelet Count 205 K/mm3 (150-450); RBC Distribution Width CV 12.4 % (11.6-14.6); RBC Distribution Width SD 39.7 fl (35.1-43.9); Red Blood Count 4.51 M/mm3 (4.2-5.4); White Blood Count 4.7 K/mm3 (4.4-11.0)
[2024-05-28 15:27] LABS: Vitamin B12 475 pg/mL (211-911); Vitamin D,25 Hydroxy 13.4 ng/mL
[2024-05-28 15:48] LABS: ALB/GLOB Ratio 1.1 RATIO (0.9-2.4); AST(SGOT) 13 U/L (15-37); Alanine Aminotransfer ALT/SGPT 15 U/L (13-56); Albumin, Serum 4.1 g/dL (3.2-5.0); Alkaline Phosphatase 73 U/L (45-117); Anion Gap 4 (5-15); BUN 11 mg/dL (7-18); BUN/Creat Ratio 19.7 RATIO (10-20); Calcium,Total 8.9 mg/dL (8.5-10.1); Chloride 107 mmol/L (98-107); Creatinine, Serum 0.56 mg/dL (0.55-1.02); EST Glomerular Filtration Rate 145 mL/min (>60); Est Glom Filt Rate - Afr Amer 176 mL/min (>60); Globulin 3.6 g/dL (2.2-4.2); Glucose 93 mg/dL (74-106); Potassium 4.1 mmol/L (3.5-5.1); Protein, Total 7.7 g/dL (6.4-8.2); Sodium Level 137 mmol/L (136-145); T4 Free Direct 0.97 ng/dL (0.76-1.46)
== END | disposition home or self-care (01) ==
LOC: BIMLAB 13:44
PROVIDERS: PCP Internal Medicine; Referring Provider Internal Medicine; Visit Provider Internal Medicine
DX: Z13.21 Encounter for screening for nutritional disorder (principal); F41.9 Anxiety disorder, unspecified; F32.A Depression, unspecified
CPT/HCPCS: 36415; 80053; 82306; 82607; 84439; 84443; 85025

== ENCOUNTER → 2024-08-07 | Outpatient (CLI) | payer OTHER, SELFPAY ==
[2024-08-07 11:53] LABS: CRP < 2.90 mg/L (0.0-3.0)
[2024-08-07 12:00] LABS: Erythrocyte Sedimentation Rate < 1 mm/hr (0-30)
[2024-08-08 15:07] LABS: Endomysial Antibody IgA Negative (Negative); Immunoglobulin A 272 mg/dL (87-352); t-Transglutaminase IgA <2 U/mL (0-3)
[2024-08-10 00:06] LABS: Beef <0.10 kU/L (Class 0); Chocolate <0.10 kU/L (Class 0); Codfish <0.10 kU/L (Class 0); Corn 0.15 kU/L (Class 0/I); Egg, Whole <0.10 kU/L (Class 0); Milk (Cow) <0.10 kU/L (Class 0); Mussels <0.10 kU/L (Class 0); Peanut <0.10 kU/L (Class 0); Pork <0.10 kU/L (Class 0); Salmon <0.10 kU/L (Class 0); Shrimp <0.10 kU/L (Class 0); Soybean <0.10 kU/L (Class 0); Tuna <0.10 kU/L (Class 0); Wheat 0.26 kU/L (Class 0/I)
== END | disposition home or self-care (01) ==
PROVIDERS: PCP Internal Medicine; Referring Provider Student in an Organized Health Care Education/Training Program; Visit Provider Student in an Organized Health Care Education/Training Program
DX: K58.1 Irritable bowel syndrome with constipation (principal); R11.2 Nausea with vomiting, unspecified

== ENCOUNTER → 2024-08-29 | Outpatient (CLI) | payer OTHER, SELFPAY ==
--- NOTE | 2024-08-29 10:11 | NM_ITS ---
EXAM: GASTRIC EMPTYING STUDY CLINICAL HISTORY: Nausea and vomiting. COMPARISON: None. TECHNIQUE: The patient ingested a mixture of oatmeal and 1.1 mCi of sulfur colloid. Scanning of the stomach was then obtained. FINDINGS: There is evidence of delay of gastric emptying. The T1 half is at 209 minutes. NM/Gastric Emptying Study IMPRESSION: Delayed gastric emptying. Reading Location: [id number]
== END | disposition home or self-care (01) ==
LOC: NM 10:10
PROVIDERS: PCP Internal Medicine; Referring Provider Student in an Organized Health Care Education/Training Program; Visit Provider Student in an Organized Health Care Education/Training Program
DX: K59.00 Constipation, unspecified (principal); R11.2 Nausea with vomiting, unspecified
CPT/HCPCS: 78264; A9541

== ENCOUNTER → 2025-01-29 | Outpatient (CLI) | payer OTHER, SELFPAY ==
[2025-01-29 16:58] LABS: Glucose, Dipstick Normal (Normal); Ketone-Dipstick Negative (Negative); Leukocyte Esterase-Dipstick Negative /ul (Negative); Nitrite-Dipstick Negative (Negative); Occult Blood-Urine Negative /ul (Negative); Protein-Dipstick 30 mg/dl (Negative); Specific Gravity, Urine 1.030 (1.002-1.030); Urine Bilirubin Dipstick Negative (Negative)
[2025-01-29 17:03] LABS: Color, Urine Yellow (Yellow)
[2025-01-29 17:39] LABS: Mucous, Urine 2+ /hpf (<or=2+); Red Blood Cells-Urine 0-5 SEEN /hpf (0-5); Squamous Epithelial Cells - UA 0-5 SEEN /hpf (5-10)
== END | disposition home or self-care (01) ==
LOC: LABSPEC 16:04
PROVIDERS: Physician Assistant; PCP Internal Medicine; Visit Provider Internal Medicine
DX: R39.15 Urgency of urination (principal); R33.9 Retention of urine, unspecified
CPT/HCPCS: 81001; 87086; 87088

== ENCOUNTER → 2025-03-18 | Outpatient (CLI) | payer OTHER, SELFPAY ==
--- NOTE | 2025-03-18 13:33 | US_ITS ---
PROCEDURE: POST VOID RESIDUAL BLADDER 03/18/2025 REASON FOR EXAM: URGENCY TECHNIQUE: POST VOID RESIDUAL BLADDER COMPARISON: none US/Post Void Residual Bladder IMPRESSION: Urinary bladder is unremarkable with prevoid volume of 393 cc and postvoid volu me of 40 cc. No stones within the bilateral UVJ. No mass or bladder stones. Reading Location: [facility]
== END | disposition home or self-care (01) ==
PROVIDERS: PCP Internal Medicine; Referring Provider Physician Assistant; Visit Provider Physician Assistant
DX: R33.9 Retention of urine, unspecified (principal)
CPT/HCPCS: 51798